=== PATIENT | female | born 1945 | race Caucasian/White ===

== ENCOUNTER 2018-06-09 10:08 | Emergency (ER) | payer OTHER, BC ==
[2018-06-09] MEDS ORDERED: Amoxicillin/Clavulanate K 875-125 MG Tab PO ONE (10:31)
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
== END 2018-06-09 10:55 | disposition home or self-care (01) ==
LOC: JD.ED 10:08
DX: S61.252A Open bite of right middle finger without damage to nail, initial encounter (principal); S66.322A Laceration of extensor muscle, fascia and tendon of right middle finger at wrist and hand level, initial encounter; W50.3XXA Accidental bite by another person, initial encounter
CPT/HCPCS: 99283; A9270

== ENCOUNTER 2020-02-21 07:32 | Inpatient (IN) | payer BC, MEDICARE ==
[2020-02-21] MEDS ORDERED: Ondansetron 4 MG/2 ML SDV IVPUSH ONE (07:54)
[2020-02-21] MEDS ORDERED: HYDROmorphone 0.5 MG/0.5 ML Syringe IVPUSH ONE (07:55)
--- NOTE | 2020-02-21 07:59 | EDM.PDOC ---
ED HPI GENERAL MEDICAL PROBLEM - General Chief Complaint: Abdominal Pain Stated Complaint: ABDOMINAL BLOATING Time Seen by Provider: 02/21/20 07:44 Source of Information: Reports: Patient, Family (daughter) History Limitations: Reports: No Limitations - History of Present Illness INITIAL COMMENTS - FREE TEXT/NARRATIVE: 74-year-old female presents to the ED in the accompaniment of her daughter. She indicates that she started having diffuse abdominal discomfort on , February 17. Began to appreciate increased abdominal discomfort and bloating. Bowel movements worked up until 2 days ago and were normal. No blood. No diarrhea. No fever or chills. Over the last 2 days she has been getting intermittent colicky type pain that is quite bad at times and mostly infraumbilical. Does not radiate into her back. This morning she vomited a small amount of bilious emesis. The last few days she has been living on fluids primarily water. She took in a fried egg yesterday morning that she believes stay down. No bowel movement for the last 48 hours. She believes she will still passing small amounts of flatus but not like normal. She feels like even the fluid she drank she did not void. I like it staying inside her abdomen. She has had no previous abdominal surgery. Onset: Gradual Onset Date: 02/18/20 Duration: Day(s):, Constant, Getting Worse (Increased feeling of bloatedness and ) Location: Reports: Abdomen Quality: Reports: Ache, Sharp, Stabbing Severity: Moderate Improves with: Reports: None Worsens with: Reports: Eating (Stenosis morning after drinking water) Context: Reports: Other. Denies: Activity, Exercise, Lifting, Sick Contact, Trauma Associated Symptoms: Reports: Loss of Appetite, Malaise, Nausea/Vomiting ( Emesis with a small amount of bilious material this morning). Denies: Confusion , Chest Pain, Cough (Spontaneous occurrence), cough w sputum, Diaphoresis, Fever /Chills, Headaches, Rash, Seizure, Shortness of Breath, Syncope, Weakness Treatments MEDICAID BILLER: Reports: Other (see below) (None.) Lower Abdomen Pain Score (Numeric/FACES): 2 - Related Data Allergies Allergy/AdvReac Type Severity Reaction Status Date / Time No Known Allergies Allergy Verified 02/21/20 07:47 Home Meds: Home Meds Levothyroxine Sodium [Synthroid] 0 mg PO DAILY 10/01/18 [History] Past Medical History - Past Health History Medical/Surgical History: Denies Medical/Surgical History Endocrine/Metabolic History: Reports: Hypothyroidism (On supplementation) Social & Family History - Tobacco Use Smoking Status *Q: Never Smoker - Caffeine Use Caffeine Use: Reports: None - Recreational Drug Use Recreational Drug Use: No - Living Situation & Occupation Living situation: Reports: Single Occupation: Retired ED ROS GENERAL - Review of Systems Review Of Systems: See Below Constitutional: Reports: Fatigue, Decreased Appetite, Other ([place] bloating. Vital signs show temperature 36.8. Heart rate is 93 and sinus respiratory to 16 with O2 sats of 96% on room air. BP is a bit elevated initially at 163 / 110. Currently down to 139/85). Denies: Fever, Chills, Malaise, Weakness, Night Sweats, Diaphoresis, Weight Loss (Not sleeping well last few nights), Weight Gain HEENT: Reports: Glasses Respiratory: Reports: No Symptoms Cardiovascular: Reports: No Symptoms Endocrine: Reports: No Symptoms GI/Abdominal: Reports: Abdominal Pain (See history of present illness.), Constipation (Bowel movement x2 days), Flatus (Still passing flatus) : Reports: No Symptoms Musculoskeletal: Reports: No Symptoms Skin: Reports: No Symptoms Neurological: Reports: No Symptoms Psychiatric: Reports: No Symptoms Hematologic/Lymphatic: Reports: No Symptoms Immunologic: Reports: No Symptoms ED EXAM, GI/ABD - Physical Exam Exam: See Below Exam Limited By: No Limitations General Appearance: Alert, WD/WN, No Apparent Distress, Other (Temperature is 36.8. Pulse 93 and sinus respiratory 16 O2 sats 96% on room air. BP is currently 138/85) Eyes: Bilateral: Normal Appearance (No scleral icterus or blepharal pallor.) Throat/Mouth: Normal Inspection, Normal Lips, Normal Oropharynx, Other Head: Atraumatic, Normocephalic (Is moist) Neck: Normal Inspection, Supple, Non-Tender, Full Range of Motion. No: Lymphadenopathy (L), Lymphadenopathy (R) Respiratory/Chest: No Respiratory Distress, Lungs Clear, Normal Breath Sounds, No Accessory Muscle Use, Chest Non-Tender Cardiovascular: Normal Peripheral Pulses, Regular Rate, Rhythm, No Edema, No Gallop, No Murmur, No Rub GI/Abdominal Exam: Soft, Non-Tender, No Organomegaly, No Mass, Pelvis Stable, Distended (Patient is distended and diffusely tympanitic to percussion. Some of the bowel sounds are fairly high-pitched.), Abnormal Bowel Sounds (Hyper active bowel sounds particularly across the upper abdomen), Other (No signs of peritonitis and no localization of pain.) Extremities: Normal Inspection, Normal Range of Motion, Non-Tender, No Pedal Edema Neurological: Alert, Oriented, CN II-XII Intact, Normal Cognition, Normal Gait Psychiatric: Normal Affect, Anxious (Mildly anxious.) Skin Exam: Warm, Dry, Intact, Normal Color, No Rash Course - Vital Signs Last Recorded V/S: Last Vital Signs Temp 36.8 C 02/21/20 13:38 Pulse 78 02/21/20 13:38 Resp 16 02/21/20 13:38 BP 104/80 02/21/20 13:38 Pulse Ox 98 02/21/20 13:38 - Orders/Labs/Meds Orders: Active Orders 24 hr Category Date Time Status Enema [RC] ASDIRECTED Care 02/21/20 11:40 Active Medication Orders Acetaminophen (Tylenol) 975 mg PO Q8H [facility] Last Admin: 02/21/20 14:15 Dose: 975 mg Docusate Sodium (Colace) 100 mg PO BID [facility] Last Admin: 02/21/20 14:15 Dose: 100 mg Lactated Ringer's (Ringers, Lactated) 1,000 mls @ 100 mls/hr IV ASDIRECTED [facility] Last Admin: 02/21/20 14:17 Dose: 100 mls/hr Levothyroxine Sodium (Levothyroxine) 25 mcg PO ACBREAKFAST [facility] Polyethylene Glycol (Miralax) 17 gm PO BID [facility] Last Admin: 02/21/20 14:17 Dose: 17 gm Labs: Laboratory Tests 02/21/20 02/21/20 02/21/20 Range/Units 08:05 08:05 08:05 WBC 7.89 (3.98-10.04) K/mm3 RBC 4.85 (3.98-5.22) M/mm3 Hgb 13.5 (11.2-15.7) gm/dl Hct 42.0 (34.1-44.9) % MCV 86.6 (79.4-94.8) fl MCH 27.8 (25.6-32.2) pg MCHC 32.1 L (32.2-35.5) g/dl RDW Std Deviation 45.3 (36.4-46.3) fL Plt Count 339 (182-369) K/mm3 MPV 10.0 (9.4-12.3) fl Neut % (Auto) 82.0 H (34.0-71.1) % Lymph % (Auto) 9.5 L (19.3-51.7) % Norton % (Auto) 8.2 (4.7-12.5) % Eos % (Auto) 0.1 L (0.7-5.8) Baso % (Auto) 0.1 (0.1-1.2) % Neut # (Auto) 6.46 H (1.56-6.13) K/mm3 Lymph # (Auto) 0.75 L (1.18-3.74) K/mm3 Norton # (Auto) 0.65 H (0.24-0.36) K/mm3 Eos # (Auto) 0.01 L (0.04-0.36) K/mm3 Baso # (Auto) 0.01 (0.01-0.08) K/mm3 Manual Slide Review Abnormal smear Sodium 139 (136-145) mEq/L Potassium 3.8 (3.5-5.1) mEq/L Chloride 100 (98-107) mEq/L Carbon Dioxide 25 (21-32) mEq/L Anion Gap 17.8 H (5-15) BUN 17 (7-18) mg/dL Creatinine 0.9 (0.55-1.02) mg/dL Est Cr Clr Drug Dosing 52.60 mL/min Estimated GFR (MDRD) > 60 (>60) mL/min BUN/Creatinine Ratio 18.9 H (14-18) Glucose 120 H (83-115) mg/dL Lactic Acid (0.4-2.0) mmol/L Calcium 9.6 (8.5-10.1) mg/dL Magnesium 2.1 (1.8-2.4) mg/dl Total Bilirubin 0.4 (0.2-1.0) mg/dL AST 30 (15-37) U/L ALT 22 (14-59) U/L Alkaline Phosphatase 73 (46-116) U/L C-Reactive Protein 0.3 (<1.0) mg/dL Total Protein 7.2 (6.4-8.2) g/dl Albumin 4.0 (3.4-5.0) g/dl Globulin 3.2 gm/dL Albumin/Globulin Ratio 1.3 (1-2) Lipase 47 L (73-393) U/L TSH 3rd Generation 4.507 H (0.358-3.74) uIU/mL Ketones 1.61 (0.0-0.3) mM /14/20 Range/Units 08:25 WBC (3.98-10.04) K/mm3 RBC (3.98-5.22) M/mm3 Hgb (11.2-15.7) gm/dl Hct (34.1-44.9) % MCV (79.4-94.8) fl MCH (25.6-32.2) pg MCHC (32.2-35.5) g/dl RDW Std Deviation (36.4-46.3) fL Plt Count (182-369) K/mm3 MPV (9.4-12.3) fl Neut % (Auto) (34.0-71.1) % Lymph % (Auto) (19.3-51.7) % Norton % (Auto) (4.7-12.5) % Eos % (Auto) (0.7-5.8) Baso % (Auto) (0.1-1.2) % Neut # (Auto) (1.56-6.13) K/mm3 Lymph # (Auto) (1.18-3.74) K/mm3 Norton # (Auto) (0.24-0.36) K/mm3 Eos # (Auto) (0.04-0.36) K/mm3 Baso # (Auto) (0.01-0.08) K/mm3 Manual Slide Review Sodium (136-145) mEq/L Potassium (3.5-5.1) mEq/L Chloride (98-107) mEq/L Carbon Dioxide (21-32) mEq/L Anion Gap (5-15) BUN (7-18) mg/dL Creatinine (0.55-1.02) mg/dL Est Cr Clr Drug Dosing mL/min Estimated GFR (MDRD) (>60) mL/min BUN/Creatinine Ratio (14-18) Glucose (83-115) mg/dL Lactic Acid 0.8 (0.4-2.0) mmol/L Calcium (8.5-10.1) mg/dL Magnesium (1.8-2.4) mg/dl Total Bilirubin (0.2-1.0) mg/dL AST (15-37) U/L ALT (14-59) U/L Alkaline Phosphatase (46-116) U/L C-Reactive Protein (<1.0) mg/dL Total Protein (6.4-8.2) g/dl Albumin (3.4-5.0) g/dl Globulin gm/dL Albumin/Globulin Ratio (1-2) Lipase (73-393) U/L TSH 3rd Generation (0.358-3.74) uIU/mL Ketones (0.0-0.3) mM Meds: Medications Generic Name Dose Route Start Last Admin Trade Name Freq PRN Reason Stop Dose Admin Acetaminophen 975 mg 02/21/20 12:00 02/21/20 14:15 Tylenol PO 975 mg Q8H GREGORY Administration Docusate Sodium 100 mg 02/21/20 12:00 02/21/20 14:15 Colace PO 100 mg BID GREGORY Administration Lactated Ringer's 1,000 mls @ 100 mls/hr 02/21/20 14:15 02/21/20 14:17 Ringers, Lactated IV 100 mls/hr ASDIRECTED GREGORY Administration Levothyroxine Sodium 25 mcg 02/22/20 06:00 Levothyroxine PO ACBREAKFAST GREGORY Polyethylene Glycol 17 gm 02/21/20 12:00 02/21/20 14:17 Miralax PO 17 gm BID GREGORY Administration Discontinued Medications Generic Name Dose Route Start Last Admin Trade Name Freq PRN Reason Stop Dose Admin Diatrizoate Meglum/Diatrizoate Sod 90 ml 02/21/20 10:20 02/21/20 10:36 Gastrografin 37% PO 02/21/20 10:21 90 ml ONETIME ONE Administration Hydromorphone HCl 0.5 mg 02/21/20 07:55 02/21/20 08:08 Dilaudid IVPUSH 02/21/20 07:56 0.5 mg ONETIME ONE Administration Dextrose/Sodium Chloride 1,000 mls @ 500 mls/hr 02/21/20 08:00 02/21/20 08:12 Dextrose 5%-Normal Saline IV 500 mls/hr ASDIRECTED GREGORY Administration Dextrose/Lactated Ringer's 1,000 mls @ 150 mls/hr 02/21/20 11:45 Dextrose 5%-Lactated Ringers IV ASDIRECTED GREGORY Iopamidol 100 ml 02/21/20 10:20 02/21/20 10:36 Isovue-300 (61%) IVPUSH 02/21/20 10:21 100 ml ONETIME ONE Administration Lactulose 20 gm 02/21/20 08:46 02/21/20 09:05 Cephulac PO 02/21/20 08:47 20 gm ONETIME ONE Administration Ondansetron HCl 4 mg 02/21/20 07:54 02/21/20 08:06 Zofran IVPUSH 02/21/20 07:55 4 mg ONETIME ONE Administration Sodium Chloride 10 ml 02/21/20 10:20 02/21/20 10:36 Saline Flush FLUSH 02/21/20 10:21 10 ml ONETIME ONE Administration - Radiology Interpretation Free Text/Narrative:: 74-year-old female presents to the ED for evaluation of gradually worsening abdominal discomfort over the last 3 to 4 days. She feels bloated distended and is still passing small quantities of flatus but no stool for 2 days. She had emesis x1 this morning. Has no appetite and has taken only fluids for the last 2 days. She did have a fried egg yesterday morning. No previous abdominal surgery. Exam reveals her to be distended with diffuse increased bowel sounds and tympany to percussion. Some of the bowel sounds are fairly high-pitched in the upper abdomen. Seen at the walk-in clinic on February 17 and diagnosed with partial small bowel obstruction. Instead of getting better it has not resolved. Plan D5 normal saline at 500 mils per hour. Given Dilaudid 0.5 mg IV with Zofran 4 mg IV for nausea and vomiting relief. Routine labs to be obtained including a serum lipase. CRP. Urinalysis when 1 becomes available. KUB to be done. Decision will be made whether to pursue CT of the abdomen after this. - Re-Assessments/Exams Free Text/Narrative Re-Assessment/Exam: 02/21/20 08:48 KUB reveals dilated loop of large bowel in the right upper quadrant of the abdomen. Appears to be a fair amount of stool throughout the descending colon and sparsity of gas in the rectal vault and lower abdomen. Where there is some fluid in the lower abdomen as well. No sign of air in the small bowel to suggest obstruction. There are no air-fluid levels in the distended loops of large bowel right upper quadrant. Plan will pursue CT of the abdomen with oral contrast with the addition of 20 g of lactulose with the contrast media to promote bowel emptying. Feeling comfortable at this point time with no nausea or abdominal pain after Zofran and Dilaudid 0.5. 02/21/20 09:30 White count is 7.89 with 82% neutrophils on the auto differential. Hemoglobin is 13.5 with hematocrit of 42.0. Platelet count is 339,000. Sodium 139 with a potassium of 3.8. Chloride is 100 with a bicarb of 25. Anion gap is 17.8. BUN is 17 with a creatinine of 0.9. GFR is greater than 60. Glucose 120 with a lactic acid of 0.8. Calcium 9.6 magnesium 2.1. Liver function normal. C-reactive protein 0.3. Total protein 7.2 lipase is 47 TSH is mildly elevated at 4.507. Gating she is subtherapeutic in terms of treatment. Serum ketones are elevated at 1.61. 02/21/20 11:23 CT of the abdomen and pelvis has been performed with IV and oral contrast. Mild amount amount of ascites is seen within the abdomen and pelvis. Dilated loops of fluids filled small bowel are appreciated. Fluid is also noted within the right side of the colon. Mild scattered stool is seen with in other portions of the colon. Small bowel dilatation occurs down to the terminal ileum with terminal ileum showing wall thickening. Appendix not visualized with certainty. Liver contains a small low-density finding within the left lobe which is too small to characterize by Hounsfield unit measurements. It measures about 6 mm in size. No additional abnormality is seen within the liver. Small amount of contrast is noted within the distal esophagus compatible with reflux. Spleen appears normal in size. Adrenal glands show no discrete nodules. Pancreas shows no abnormality kidneys show symmetric contrast enhancement without hydronephrosis or mass. The right kidney shows 2 small low-density findings which are nonspecific but most likely due to 2 small cysts. Gallbladder contains no calcified gallstones. Aorta shows no aneurysm. No discrete mesenteric abnormalities are appreciated no pelvic mass or adenopathy is seen. Delayed images show contrast within the distal ureters and within the bladder. Degenerative changes noted within the spine. Severe disc space narrowing is noted at the L4-L5 level with spondylolisthesis due to bilateral spondylitic defects , spondylolisthesis measures 1.1 cm. Severe disc space narrowing and vacuum phenomena seen at L5-S1 level as well. Impression is dilated small bowel loops down to the terminal ileum. Terminal ileum appears thickened. Findings suggest a nonspecific terminal ileitis as the etiology for the small bowel dilatation. 02/21/20 11: regarding go ahead and try a 1 enema with mineral oil to see if we can stimulate her bowel to she had the contrast material and the lactulose that I had given her. I have asked Dr. Crews on-call surgeon to see her in consultation as well. 02/21/20 12:03 Dr. Crews has visited with the patient and reviewed her CT and lab work. Decision made to admit her to the hospital per observation status as she cannot eat or drink at this point time. It is unclear as to the cause of her abdominal pain. There is concern for possible transition point in the mid transverse colon suggesting an obstruction process that is gradually worsening over the last 4 days. We are hopeful that the contrast and lactulose that I gave her orally may produce bowel function. Departure - Departure Time of Disposition: 13:20 Disposition: Refer to Observation Condition: Fair Clinical Impression: Abdominal pain Qualifiers: Abdominal location: generalized Qualified Code(s): R10.84 - Generalized abdominal pain Partial intestinal obstruction, unspecified as to cause Qualifiers: Intestinal obstruction type: unspecified Qualified Code(s): K56.600 - Partial intestinal obstruction, unspecified as to cause - Discharge Information *PRESCRIPTION DRUG MONITORING PROGRAM REVIEWED*: Not Applicable *COPY OF PRESCRIPTION DRUG MONITORING REPORT IN PATIENT LIZBETH: Not Applicable Sepsis Event Note (ED) - Evaluation Sepsis Screening Result: No Definite Risk - Focused Exam Vital Signs: Vital Signs Temp Pulse Resp BP Pulse Ox 02/21/20 07:42 36.8 C 93 16 163/110 H 96 - My Orders Last 24 Hours: My Active Orders 02/21/20 11:40 Enema [RC] ASDIRECTED - Assessment/Plan Last 24 Hours: My Active Orders 02/21/20 11:40 Enema [RC] ASDIRECTED
[2020-02-21] MEDS ORDERED: Dextrose 5%-0.9% NaCl 1,000 ML IV SCH (08:00)
[2020-02-21] MEDS ORDERED: Lactulose Soln 10 GM/15 ML 30 ML UD Cup PO ONE (08:46)
--- NOTE | 2020-02-21 09:56 | CR ---
Abdomen: Supine view of the abdomen was obtained. Comparison: No prior abdominal x-ray is available. Bowel gas pattern appears within normal limits. Degenerative change is noted within both hips, most severe on the right side. No abnormal calcifications or discrete soft tissue abnormality is seen. Impression: 1. Findings as described above. 2. Nothing acute is identified. Diagnostic code #2 Study was dictated in MDT
[2020-02-21] MEDS ORDERED: Sodium Chloride 0.9% 10 ML Syringe FLUSH ONE (10:20)
[2020-02-21] MEDS ORDERED: Iopamidol 612 MG/ML 100 ML Bottle IVPUSH ONE (10:20)
[2020-02-21] MEDS ORDERED: Diatrizoate Meglumine/Diatrizoate Sodium 37% 120 ML Bottle PO ONE (10:20)
--- NOTE | 2020-02-21 11:06 | CT ---
CT abdomen and pelvis Technique: Multiple axial sections were obtained from above the dome of the diaphragm inferiorly through the pubic symphysis. Intravenous and oral contrast was utilized. Findings: Mild amount of ascites is seen within the abdomen and pelvis. Dilated loops of fluid-filled small bowel are noted. Fluid is also noted within the right side of the colon. Mild scattered stool is seen within other portions of the colon. Small bowel dilatation occurs down to the terminal ileum with terminal ileum showing wall thickening. Appendix not visualized with certainty. Liver contains a small low density finding within the left lobe which is too small to characterize by Hounsfield unit measurements. This measures about 6 mm in size. No additional abnormality is seen within the liver. Small amount of contrast is noted within the distal esophagus compatible with reflux. Spleen appears normal in size. Adrenal glands show no discrete nodule. Pancreas shows no abnormality. Kidneys show symmetric contrast enhancement without hydronephrosis or mass. Right kidney shows 2 small low density findings which are nonspecific but most likely due to 2 small cysts. Gallbladder contains no calcified gallstones. Aorta shows no aneurysm. No discrete mesenteric abnormalities are seen. No pelvic mass or adenopathy is seen. Delayed images shows contrast within the distal ureters and within the bladder. Degenerative change is noted within the spine. Severe disc space narrowing is noted at L4-L5 with spondylolisthesis due to bilateral spondylolytic defects. Spondylolisthesis measures 1.1 cm. Severe disc space narrowing and vacuum phenomena is seen at L5-S1. Impression: 1. Dilated small bowel loops down to the terminal ileum. Terminal ileum appears thickened. Findings suggest a nonspecific terminal ileitis as the etiology for the small bowel dilatation. 2. Fluid within the right colon. Stool within other portions of the colon. 3. Other findings believed to be incidental as noted above. Diagnostic code #5 Study was dictated in MDT
[2020-02-21] MEDS ORDERED: Dextrose 5%-Lactated Ringers 1,000 ML IV SCH (11:45)
--- NOTE | 2020-02-21 12:07 | PCM.HP.2 ---
H&P History of Present Illness - General Date of Service: 02/21/20 Admit Problem/Dx: Admission Diagnosis/Problem Admission Diagnosis/Problem Small bowel obstruction Source of Information: Patient, Provider History Limitations: Reports: No Limitations - History of Present Illness Other HPI/Comments: Mrs. Hernandez is a 74 yo woman presenting with abdominal pain and bloating. She has noted intermittent abdominal cramping, pain and bloating for about a month now. Her symptoms worsened within the past 48 hours- she has had nausea, one small volume emesis, constipation and pain. She denies fever, chills. She has never had symptoms like this before. She has no history of abdominal operations. She is relatively healthy for her age, and only takes synthroid for hypothyroidism. She has never had a colonoscopy, and her mother was diagnosed with colon cancer when she was in her 80s. The patient reports perhaps a few pounds of weight loss recently, though she attributes this to loss of appetite. She denies any change in caliber, color, or consistency to her bowel movements. She last passed some flatus earlier today; last bowel movement was about three days ago. In the emergency room, her lab work is indicative only of mild dehydration, but her CT scan is abnormal, showing evidence of obstruction with transition point noted at the mid transverse colon, with dilated loops of distal small bowel and mild ascites. Clinically, she appears well with minimal abdominal tenderness. Lower Abdomen Pain Score (Numeric/FACES): 2 - Related Data Allergies/Adverse Reactions: Allergies Allergy/AdvReac Type Severity Reaction Status Date / Time No Known Allergies Allergy Verified 02/21/20 07:47 Home Medications: Home Meds Levothyroxine Sodium [Synthroid] 0 mg PO DAILY 06/09/18 [History] Past Medical History - Past Health History Medical/Surgical History: Denies Medical/Surgical History Endocrine/Metabolic History: Reports: Hypothyroidism (On supplementation) Social & Family History - Tobacco Use Smoking Status *Q: Never Smoker - Caffeine Use Caffeine Use: Reports: None - Recreational Drug Use Recreational Drug Use: No - Living Situation & Occupation Living situation: Reports: Single Occupation: Retired H&P Review of Systems - Review of Systems: Review Of Systems: See Below General: Reports: Decreased Appetite HEENT: Reports: No Symptoms Pulmonary: Reports: No Symptoms Cardiovascular: Reports: No Symptoms Gastrointestinal: Reports: Abdominal Pain, Anorexia, Constipation, Decreased Appetite, Distension, Flatus, Nausea, Vomiting Genitourinary: Reports: No Symptoms Musculoskeletal: Reports: No Symptoms Skin: Reports: No Symptoms Psychiatric: Reports: No Symptoms Neurological: Reports: No Symptoms Hematologic/Lymphatic: Reports: No Symptoms Immunologic: Reports: No Symptoms Exam - Exam Exam: See Below - Vital Signs Vital Signs: Last Vital Signs Temp 36.8 C 02/21/20 07:42 Pulse 93 02/21/20 07:42 Resp 16 02/21/20 07:42 BP 163/110 H 02/21/20 07:42 Pulse Ox 96 02/21/20 07:42 Weight: 58.967 kg - Exam General: Alert, Oriented, Cooperative HEENT: Conjunctiva Clear Neck: Trachea Midline Lungs: Normal Respiratory Effort Cardiovascular: Regular Rate, Regular Rhythm GI/Abdominal Exam: Other (distended. no hernia. minimally tender. No palpable mass. Dull to percussion. ) (Female) Exam: Deferred Rectal (Female) Exam: Deferred Extremities: No Pedal Edema Skin: Warm, Dry, Other (decreased skin turgor) Neuro Extensive - Mental Status: Alert, Oriented x3 Psychiatric: Normal Mood - Patient Data Lab Results Last 24 hrs: Laboratory Results - last 24 hr 02/21/20 02/21/20 02/21/20 Range/Units 08:05 08:05 08:05 WBC 7.89 (3.98-10.04) K/mm3 RBC 4.85 (3.98-5.22) M/mm3 Hgb 13.5 (11.2-15.7) gm/dl Hct 42.0 (34.1-44.9) % MCV 86.6 (79.4-94.8) fl MCH 27.8 (25.6-32.2) pg MCHC 32.1 L (32.2-35.5) g/dl RDW Std Deviation 45.3 (36.4-46.3) fL Plt Count 339 (182-369) K/mm3 MPV 10.0 (9.4-12.3) fl Neut % (Auto) 82.0 H (34.0-71.1) % Lymph % (Auto) 9.5 L (19.3-51.7) % Todd % (Auto) 8.2 (4.7-12.5) % Eos % (Auto) 0.1 L (0.7-5.8) Baso % (Auto) 0.1 (0.1-1.2) % Neut # (Auto) 6.46 H (1.56-6.13) K/mm3 Lymph # (Auto) 0.75 L (1.18-3.74) K/mm3 Todd # (Auto) 0.65 H (0.24-0.36) K/mm3 Eos # (Auto) 0.01 L (0.04-0.36) K/mm3 Baso # (Auto) 0.01 (0.01-0.08) K/mm3 Manual Slide Review Abnormal smear Sodium 139 (136-145) mEq/L Potassium 3.8 (3.5-5.1) mEq/L Chloride 100 (98-107) mEq/L Carbon Dioxide 25 (21-32) mEq/L Anion Gap 17.8 H (5-15) BUN 17 (7-18) mg/dL Creatinine 0.9 (0.55-1.02) mg/dL Est Cr Clr Drug Dosing 52.60 mL/min Estimated GFR (MDRD) > 60 (>60) mL/min BUN/Creatinine Ratio 18.9 H (14-18) Glucose 120 H (83-115) mg/dL Lactic Acid (0.4-2.0) mmol/L Calcium 9.6 (8.5-10.1) mg/dL Magnesium 2.1 (1.8-2.4) mg/dl Total Bilirubin 0.4 (0.2-1.0) mg/dL AST 30 (15-37) U/L ALT 22 (14-59) U/L Alkaline Phosphatase 73 (46-116) U/L C-Reactive Protein 0.3 (<1.0) mg/dL Total Protein 7.2 (6.4-8.2) g/dl Albumin 4.0 (3.4-5.0) g/dl Globulin 3.2 gm/dL Albumin/Globulin Ratio 1.3 (1-2) Lipase 47 L (73-393) U/L TSH 3rd Generation 4.507 H (0.358-3.74) uIU/mL Ketones 1.61 (0.0-0.3) mM 02/21/20 Range/Units 08:25 WBC (3.98-10.04) K/mm3 RBC (3.98-5.22) M/mm3 Hgb (11.2-15.7) gm/dl Hct (34.1-44.9) % MCV (79.4-94.8) fl MCH (25.6-32.2) pg MCHC (32.2-35.5) g/dl RDW Std Deviation (36.4-46.3) fL Plt Count (182-369) K/mm3 MPV (9.4-12.3) fl Neut % (Auto) (34.0-71.1) % Lymph % (Auto) (19.3-51.7) % Todd % (Auto) (4.7-12.5) % Eos % (Auto) (0.7-5.8) Baso % (Auto) (0.1-1.2) % Neut # (Auto) (1.56-6.13) K/mm3 Lymph # (Auto) (1.18-3.74) K/mm3 Todd # (Auto) (0.24-0.36) K/mm3 Eos # (Auto) (0.04-0.36) K/mm3 Baso # (Auto) (0.01-0.08) K/mm3 Manual Slide Review Sodium (136-145) mEq/L Potassium (3.5-5.1) mEq/L Chloride (98-107) mEq/L Carbon Dioxide (21-32) mEq/L Anion Gap (5-15) BUN (7-18) mg/dL Creatinine (0.55-1.02) mg/dL Est Cr Clr Drug Dosing mL/min Estimated GFR (MDRD) (>60) mL/min BUN/Creatinine Ratio (14-18) Glucose (83-115) mg/dL Lactic Acid 0.8 (0.4-2.0) mmol/L Calcium (8.5-10.1) mg/dL Magnesium (1.8-2.4) mg/dl Total Bilirubin (0.2-1.0) mg/dL AST (15-37) U/L ALT (14-59) U/L Alkaline Phosphatase (46-116) U/L C-Reactive Protein (<1.0) mg/dL Total Protein (6.4-8.2) g/dl Albumin (3.4-5.0) g/dl Globulin gm/dL Albumin/Globulin Ratio (1-2) Lipase (73-393) U/L TSH 3rd Generation (0.358-3.74) uIU/mL Ketones (0.0-0.3) mM Result Diagrams: 02/21/20 08:05 02/21/20 08:05 Sepsis Event Note - Evaluation Sepsis Screening Result: No Definite Risk - Focused Exam Vital Signs: Vital Signs Temp Pulse Resp BP Pulse Ox 02/21/20 07:42 36.8 C 93 16 163/110 H 96 Date Exam was Performed: 02/21/20 Time Exam was Performed: 12:01 *Q Meaningful Use (ADM) - VTE Risk Assess *Q Each Risk Factor Represents 2 Points: Age 60 - 74 Years Total Score 2 Point Risk Factors: 2 Problem List Initiated/Reviewed/Updated: Yes Orders Last 24hrs: Active Orders 24 hr Category Date Time Status Patient Status [ADT] Routine ADT 02/21/20 11:57 Ordered Activity as Tolerated [RC] .Routine Care 02/21/20 11:57 Ordered Antiembolic Devices [RC] PER UNIT ROUTINE Care 02/21/20 11:58 Ordered Enema [RC] ASDIRECTED Care 02/21/20 11:40 Active Oxygen Therapy [RC] PRN Care 02/21/20 11:57 Ordered Vital Signs [RC] Q8H Care 02/21/20 11:57 Ordered Regular Diet [DIET] Diet 02/21/20 Breakfast Ordered BASIC METABOLIC PANEL,BMP [CHEM] AM Lab 02/22/20 05:11 Ordered CBC WITH AUTO DIFF [HEME] AM Lab 02/22/20 05:11 Ordered URINALYSIS W/MICROSCOPIC [UA W/MICROSCOPIC] [URIN] Stat Lab 02/21/20 07:56 Ordered Acetaminophen [Tylenol] Med 02/21/20 12:00 Ordered 975 mg PO Q8H Dextrose 5%-0.9% NaCl [Dextrose 5%-Normal Saline] 1,000 Med 02/21/20 08:00 Active ml IV ASDIRECTED Dextrose 5%-Lactated Ringers 1,000 ml Med 02/21/20 11:45 Active IV ASDIRECTED Docusate Sodium [Colace] Med 02/21/20 12:00 Ordered 100 mg PO BID Levothyroxine Med 02/22/20 09:00 Ordered 25 mcg PO DAILY polyethylene glycoL 3350 [MiraLAX] Med 02/21/20 12:00 Ordered 17 gm PO BID Sequential Compression Device [OM.PC] Routine Oth 02/21/20 11:57 Ordered Resuscitation Status Routine Resus Stat 02/21/20 11:57 Ordered Medication Orders Dextrose/Sodium Chloride (Dextrose 5%-Normal Saline) 1,000 mls @ 500 mls/hr IV ASDIRECTED [facility] Last Admin: 02/21/20 08:12 Dose: 500 mls/hr Dextrose/Lactated Ringer's (Dextrose 5%-Lactated Ringers) 1,000 mls @ 150 mls/ hr IV ASDIRECTED [facility] Assessment/Plan Comment:: Partial large bowel obstruction, no with fairly minimal symptoms. Plan to admit for observation, IV fluid resuscitation, bowel regimen. Anticipate discharge to home if doing better tomorrow. Patient will need urgent colonoscopy which can be done in outpatient setting based on current clinical picture.
[2020-02-21] MEDS: Docusate Sodium 100 MG Cap PO SCH ×3 (14:15→23:51)
[2020-02-21] MEDS: Acetaminophen 325 MG Tab PO SCH ×2 (14:15→19:44)
[2020-02-21] MEDS: Polyethylene Glycol 3350 Powder 17 GM Packet PO SCH ×3 (14:17→23:49)
[2020-02-21] MEDS: Lactated Ringers 1,000 ML IV SCH ×2 (14:17→23:09)
[2020-02-21] MEDS: Ondansetron 4 MG/2 ML SDV IVPUSH PRN (23:36)
[2020-02-22] MEDS: Acetaminophen 325 MG Tab PO SCH ×3 (04:54→20:07)
[2020-02-22] MEDS: Levothyroxine 25 MCG Tab PO SCH ×2 (04:54→05:06)
[2020-02-22] MEDS ORDERED: Levothyroxine 112 MCG Tab PO SCH ×2 (06:00→07:00)
[2020-02-22] MEDS: Polyethylene Glycol 3350 Powder 17 GM Packet PO SCH (08:00)
[2020-02-22] MEDS: Docusate Sodium 100 MG Cap PO SCH (08:00)
[2020-02-22] MEDS: Lactated Ringers 1,000 ML IV SCH ×2 (10:10→20:14)
[2020-02-22] MEDS: Ondansetron 4 MG/2 ML SDV IVPUSH PRN (12:32)
[2020-02-22] MEDS ORDERED: Benzocaine 20% Oral Spray 59.2 ML Canister MUCMEM PRN (17:49)
--- NOTE | 2020-02-22 18:25 | CR ---
Chest: PA view of the chest was obtained. Comparison: No prior chest imaging is available. Heart size and mediastinum are within normal limits. Increased density within left lung base is seen. Difficult to exclude small left-sided pleural effusion. Nasogastric tube is seen with tip lying within the stomach. Mildly dilated loops of bowel are seen within the abdomen. No free air is seen. Impression: 1. Findings are compatible with partially visualized small bowel obstruction. 2. Increased density within the left lung base most likely due to atelectasis. Possible small left-sided pleural effusion. 3. Tip of nasogastric tube within the stomach. Diagnostic code #3 This report was dictated in MDT
[2020-02-22] MEDS ORDERED: Acetaminophen 325 MG/10.15 ML ML PO PRN (20:04)
[2020-02-22] MEDS ORDERED: Ketorolac 15 MG/ML SDV IVPUSH PRN (20:06)
[2020-02-23] MEDS: Levothyroxine 25 MCG Tab PO SCH (05:26)
[2020-02-23] MEDS: Levothyroxine 112 MCG Tab PO SCH (05:26)
[2020-02-23] MEDS: Lactated Ringers 1,000 ML IV SCH ×2 (05:27→18:21)
[2020-02-23] MEDS ORDERED: Acetaminophen 325 MG Tab PO PRN (06:24)
[2020-02-23] MEDS ORDERED: Diatrizoate Meglumine/Diatrizoate Sodium 37% 120 ML Bottle ONE (08:13)
[2020-02-23] MEDS ORDERED: DIATRIZOATE MEGLUMINE ONE (09:00)
--- NOTE | 2020-02-23 09:41 | CR ---
Barium enema: Water-soluble contrast was utilized. Colon was outlined to the hepatic flexure. Department had no further contrast and study was terminated at this point. No areas of obstruction or narrowing are seen within the left or transverse colon. Increased stool is noted on preliminary film in the area of the right colon. Nasogastric tube is seen. Impression: 1. Increased stool within the right colon. 2. Colon was outlined to this area of stool at the hepatic flexure. No further contrast was available to attempt to outline the right colon around this stool. 3. No findings of colonic stricture are seen within the left or transverse colon. Diagnostic code #3 This report was dictated in MDT
--- NOTE | 2020-02-23 10:22 | PCM.PREANE ---
Preanesthetic Assessment - Procedure Proposed Procedure: Diagnostic Laparotomy with possible bowel resection - Anesthesia/Transfusion/Family Hx Anesthesia History: No Prior Anesthesia Transfusion History: No Prior Transfusion(s) - Review of Systems General: No Symptoms Pulmonary: No Symptoms Cardiovascular: No Symptoms Gastrointestinal: No Symptoms Neurological: No Symptoms Other: Reports: None - Physical Assessment NPO Status Date: 02/23/20 NPO Status Time: 04:00 Vital Signs: Last Vital Signs Temp 98.1 F 02/23/20 07:38 Pulse 72 02/23/20 07:38 Resp 20 02/23/20 07:38 BP 121/73 02/23/20 07:38 Pulse Ox 97 02/23/20 07:38 Height: 1.7 m Weight: 65.045 kg ASA Class: 2 Mental Status: Alert & Oriented x3 Airway Class: Mallampati = 3 Dentition: Reports: Normal Dentition (age appropriate) Thyro-Mental Finger Breadths: 3 Mouth Opening Finger Breadths: 3 ROM/Head Extension: Limited/Partial Lungs: Clear to Auscultation Cardiovascular: Regular Rate, Regular Rhythm - Lab Values: Laboratory Last Values WBC 6.76 K/mm3 (3.98-10.04) 02/22/20 04:45 RBC 4.32 M/mm3 (3.98-5.22) 02/22/20 04:45 Hgb 12.0 gm/dl (11.2-15.7) D 02/22/20 04:45 Hct 38.2 % (34.1-44.9) 02/22/20 04:45 MCV 88.4 fl (79.4-94.8) 02/22/20 04:45 MCH 27.8 pg (25.6-32.2) 02/22/20 04:45 MCHC 31.4 g/dl (32.2-35.5) L 02/22/20 04:45 RDW Std Deviation 45.6 fL (36.4-46.3) 02/22/20 04:45 Plt Count 309 K/mm3 (182-369) 02/22/20 04:45 MPV 10.2 fl (9.4-12.3) 02/22/20 04:45 Neut % (Auto) 74.2 % (34.0-71.1) H 02/22/20 04:45 Lymph % (Auto) 16.3 % (19.3-51.7) L 02/22/20 04:45 Milam % (Auto) 8.9 % (4.7-12.5) 02/22/20 04:45 Eos % (Auto) 0.4 (0.7-5.8) L 02/22/20 04:45 Baso % (Auto) 0.1 % (0.1-1.2) 02/22/20 04:45 Neut # (Auto) 5.01 K/mm3 (1.56-6.13) 02/22/20 04:45 Lymph # (Auto) 1.10 K/mm3 (1.18-3.74) L 02/22/20 04:45 Milam # (Auto) 0.60 K/mm3 (0.24-0.36) H 02/22/20 04:45 Eos # (Auto) 0.03 K/mm3 (0.04-0.36) L 02/22/20 04:45 Baso # (Auto) 0.01 K/mm3 (0.01-0.08) 02/22/20 04:45 Manual Slide Review Abnormal smear 02/21/20 08:05 Sodium 139 mEq/L (136-145) 02/22/20 04:45 Potassium 3.4 mEq/L (3.5-5.1) L 02/22/20 04:45 Chloride 103 mEq/L (98-107) 02/22/20 04:45 Carbon Dioxide 26 mEq/L (21-32) 02/22/20 04:45 Anion Gap 13.4 (5-15) 02/22/20 04:45 BUN 11 mg/dL (7-18) 02/22/20 04:45 Creatinine 0.7 mg/dL (0.55-1.02) 02/22/20 04:45 Est Cr Clr Drug Dosing 70.64 mL/min 02/22/20 04:45 Estimated GFR (MDRD) > 60 mL/min (>60) 02/22/20 04:45 BUN/Creatinine Ratio 15.7 (14-18) 02/22/20 04:45 Glucose 113 mg/dL (83-115) 02/22/20 04:45 Lactic Acid 0.8 mmol/L (0.4-2.0) 02/21/20 08:25 Calcium 8.6 mg/dL (8.5-10.1) 02/22/20 04:45 Magnesium 2.1 mg/dl (1.8-2.4) 02/21/20 08:05 Total Bilirubin 0.4 mg/dL (0.2-1.0) 02/21/20 08:05 AST 30 U/L (15-37) 02/21/20 08:05 ALT 22 U/L (14-59) 02/21/20 08:05 Alkaline Phosphatase 73 U/L (46-116) 02/21/20 08:05 C-Reactive Protein 0.3 mg/dL (<1.0) 02/21/20 08:05 Total Protein 7.2 g/dl (6.4-8.2) 02/21/20 08:05 Albumin 4.0 g/dl (3.4-5.0) 02/21/20 08:05 Globulin 3.2 gm/dL 02/21/20 08:05 Albumin/Globulin Ratio 1.3 (1-2) 02/21/20 08:05 Lipase 47 U/L (73-393) L 02/21/20 08:05 TSH 3rd Generation 4.507 uIU/mL (0.358-3.74) H 02/21/20 08:05 Urine Color Yellow (Yellow) 02/21/20 13:14 Urine Appearance Slt cloudy (Clear) H 02/21/20 13:14 Urine pH 5.5 (5.0-8.0) 02/21/20 13:14 Ur Specific Wesley 1.015 (1.005-1.030) 02/21/20 13:14 Urine Protein Negative (Negative) 02/21/20 13:14 Urine Glucose (UA) Negative (Negative) 02/21/20 13:14 Urine Ketones 1+ (Negative) H 02/21/20 13:14 Urine Occult Blood Trace-lysed (Negative) H 02/21/20 13:14 Urine Nitrite Negative (Negative) 02/21/20 13:14 Urine Bilirubin 1+ (Negative) H 02/21/20 13:14 Urine Urobilinogen 2.0 (0.2-1.0) H 02/21/20 13:14 Ur Leukocyte Esterase Negative (Negative) 02/21/20 13:14 Urine RBC 0-5 /hpf (0-5) 02/21/20 13:14 Urine WBC Not seen /hpf (0-5) 02/21/20 13:14 Ur Squamous Epith Cells Not seen /hpf (0-5) 02/21/20 13:14 Urine Bacteria Not seen /hpf (FEW) 02/21/20 13:14 Urine Mucus Not seen /hpf (FEW) 02/21/20 13:14 Ketones 1.61 mM (0.0-0.3) 02/21/20 08:05 - Allergies Allergies/Adverse Reactions: Allergies Allergy/AdvReac Type Severity Reaction Status Date / Time No Known Allergies Allergy Verified 02/21/20 07:47 - Acknowledgements Anesthesia Type Planned: General Anesthesia, Epidural (for postoperative pain control), MAC Pt an Appropriate Candidate for the Planned Anesthesia: Yes Alternatives and Risks of Anesthesia Discussed w Pt/Guardian: Yes Pt/Guardian Understands and Agrees with Anesthesia Plan: Yes PreAnesthesia Questionnaire - Past Health History Medical/Surgical History: Denies Medical/Surgical History Endocrine/Metabolic History: Reports: Hypothyroidism (On supplementation) - SUBSTANCE USE Smoking Status *Q: Never Smoker Recreational Drug Use History: No - HOME MEDS Home Medications: Home Meds Levothyroxine Sodium [Synthroid] 137 mcg PO DAILY 06/09/18 [History] - CURRENT (IN HOUSE) MEDS Current Meds: Current Medications Acetaminophen (Tylenol) 975 mg PO Q8H PRN PRN Reason: Pain Benzocaine (Hurricaine 20% [place]) 0 ml MUCMEM Q4HR PRN PRN Reason: Sore Throat Lactated Ringer's (Ringers, Lactated) 1,000 mls @ 100 mls/hr IV ASDIRECTED [facility] Last Admin: 02/23/20 05:27 Dose: 100 mls/hr Ketorolac Tromethamine (Toradol) 15 mg IVPUSH Q6H PRN PRN Reason: Pain Last Admin: 02/23/20 00:17 Dose: 15 mg Levothyroxine Sodium (Levothyroxine) 25 mcg PO ACBREAKFAST [facility] Last Admin: 02/23/20 05:26 Dose: 25 mcg Levothyroxine Sodium (Levothyroxine) 112 mcg PO ACBREAKFAST [facility] Last Admin: 02/23/20 05:26 Dose: 112 mcg Ondansetron HCl (Zofran) 4 mg IVPUSH Q6H PRN PRN Reason: Nausea/Vomiting Last Admin: 02/22/20 12:32 Dose: 4 mg Discontinued Medications Acetaminophen (Tylenol) 975 mg PO Q8H [facility] Last Admin: 02/22/20 20:07 Dose: Not Given Acetaminophen (Tylenol) 975 mg PO Q8H PRN PRN Reason: Pain Last Admin: 02/23/20 05:27 Dose: 975 mg Diatrizoate Meglum/Diatrizoate Sod (Gastrografin 37%) 90 ml PO ONETIME ONE Stop: 02/21/20 10:21 Last Admin: 02/21/20 10:36 Dose: 90 ml Diatrizoate Meglum/Diatrizoate Sod (Gastrografin 37%) 360 ml .XX ONETIME ONE Stop: 02/23/20 08:14 Last Admin: 02/23/20 09:26 Dose: 1,000 ml Diatrizoate Meglumine (Cystografin) 300 ml .XX ONETIME ONE Stop: 02/23/20 09:01 Last Admin: 02/23/20 09:29 Dose: 300 ml Docusate Sodium (Colace) 100 mg PO BID [facility] Last Admin: 02/22/20 08:00 Dose: 100 mg Hydromorphone HCl (Dilaudid) 0.5 mg IVPUSH ONETIME ONE Stop: 02/21/20 07:56 Last Admin: 02/21/20 08:08 Dose: 0.5 mg Dextrose/Sodium Chloride (Dextrose 5%-Normal Saline) 1,000 mls @ 500 mls/hr IV ASDIRECTED [facility] Last Admin: 02/21/20 08:12 Dose: 500 mls/hr Dextrose/Lactated Ringer's (Dextrose 5%-Lactated Ringers) 1,000 mls @ 150 mls/ hr IV ASDIRECTED [facility] Iopamidol (Isovue-300 (61%)) 100 ml IVPUSH ONETIME ONE Stop: 02/21/20 10:21 Last Admin: 02/21/20 10:36 Dose: 100 ml Lactulose (Cephulac) 20 gm PO ONETIME ONE Stop: 02/21/20 08:47 Last Admin: 02/21/20 09:05 Dose: 20 gm Levothyroxine Sodium (Levothyroxine) 25 mcg PO ACBREAKFAST [facility] Last Admin: 02/22/20 05:06 Dose: Not Given Levothyroxine Sodium (Levothyroxine) 112 mcg PO DAILY@0700 [facility] Last Admin: 02/22/20 11:02 Dose: Not Given Levothyroxine Sodium (Levothyroxine) 112 mcg PO ACBREAKFAST [facility] Last Admin: 02/22/20 11:01 Dose: Not Given Ondansetron HCl (Zofran) 4 mg IVPUSH ONETIME ONE Stop: 02/21/20 07:55 Last Admin: 02/21/20 08:06 Dose: 4 mg Polyethylene Glycol (Miralax) 17 gm PO BID [facility] Last Admin: 02/22/20 08:00 Dose: 17 gm Sodium Chloride (Saline Flush) 10 ml FLUSH ONETIME ONE Stop: 02/21/20 10:21 Last Admin: 02/21/20 10:36 Dose: 10 ml
[2020-02-23] MEDS ORDERED: Propofol 200 MG/20 ML SDV ONE ×3 (10:43→14:09)
[2020-02-23] MEDS ORDERED: fentaNYL 100 MCG/2 ML SDV ONE ×2 (10:43→13:29)
[2020-02-23] MEDS ORDERED: Midazolam 1 MG/ML 2 ML SDV ONE (10:43)
[2020-02-23] MEDS ORDERED: Lidocaine 2% with EPINEPHrine 1:200,000 20 ML SDV ONE (10:44)
[2020-02-23] MEDS ORDERED: Lactated Ringers 1,000 ML ONE ×2 (12:50)
[2020-02-23] MEDS: Bupivacaine 0.5%/EPINEPHrine 1:200,000 50 ML MDV ONE ×2 (13:02→13:19)
[2020-02-23] MEDS ORDERED: Bupivacaine 0.25% 10 ML SDV ONE ×2 (13:22→14:49)
[2020-02-23] MEDS ORDERED: metroNIDAZOLE/Normal Saline 100 ML ONE (13:27)
[2020-02-23] MEDS ORDERED: EPINEPHrine 1 MG/ML SDV ONE (14:14)
--- NOTE | 2020-02-23 14:19 | PCM.PRNOTE ---
- Free Text/Narrative Note: Thoracic epidural placement for intraoperative and postoperative pain management Surgery: Laparotomy with partial colectomy Requesting surgeon: Dr. Cory Crews Patient has been interviewed, risk/benefits/alternatives discussed, questions answered. Vital signs and labs reviewed. Consent signed. IVF bolus given. Patient is sitting on the bed in preoperative area, positioning using pillow . Time out performed at 11:58. Mask, head cover, sterile gloves on. Betadine preparation x3 and sterile drape. Local infiltration with 1% Lidocaine at T10 - T11 interspace. First attempt with 17G Tuohy needle midline. Unable to advance due patient's inability to curve the back. Second attempt at the same interspace, paramedian approach. Loss of Resistance at 5 cm. No fluid obtained, no blood obtained. No paresthesia encountered. Easy threading in of 19G catheter. Secured at 13 cm at the skin. Test dose given 1.5% Lidocaine with 1:200K epinephrine, negative for intravascular/ negative for intrathecal placement. Vital signs stable. 10 mls of 2 % PF Lidocaine with 1:200K epinephrine given in incremental boluses. Catheter dressing applied and filter attached. Level assessed at 12:30 approximately T6. Fentanyl 100 mcg and then Start of procedure: 11:58 End of procedure: 12:30
[2020-02-23] MEDS ORDERED: diphenhydrAMINE 50 MG/ML SDV IVPUSH PRN (14:26)
[2020-02-23] MEDS ORDERED: fentaNYL 100 MCG/2 ML SDV EPIDUR PRN (14:26)
[2020-02-23] MEDS ORDERED: ePHEDrine 50 MG/ML SDV IVPUSH PRN (14:26)
[2020-02-23] MEDS: Bupivacaine/fentaNYL/NS 100 ML Bag EPIDUR PRN (15:45)
--- NOTE | 2020-02-23 16:13 | PCM.PRNOTE ---
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 No evident carcinomatosis or hepatic metastases were noted. Surgeon: Cory Crews MD Assisting: Yumiko SR Pre-op antibiotic: 2 g cefoxitin IV. A dose of 500 mg flagyl was given intraop EBL: 100 cc Specimen: terminal ileum, right colon, with addition of resected initial anastomosis Detailed Report: The patient was taken to the operating room after placement of an epidural catheter for anesthesia in the preoperative area. The patient was placed supine on the operating table, and sedation administered. A Alfredo catheter was placed, and the abdomen was prepped and draped in usual sterile fashion. A midline laparotomy incision was made extending from the epigastrium to approximately 5 cm inferior to the umbilicus. Dissection was carried down through subcutaneous tissue until midline fascia was identified. The abdomen was entered sharply and safely, and immediately several liters of clear ascites was encountered. Fluid was suctioned, and the incision through the fascia extended for optimal exposure. The small bowel appeared dilated and edematous, but appeared well perfused. The cecum and a sending colon were dilated and tense, with a transition point at the proximal transverse colon. A hard mass was palpable at the transition site. First, a window was made in the mesentery at the ileum approximately 20 cm proximal to the ileocecal valve. A 55 mm AUSTYN linear stapler with blue load was used to divide the bowel at this point. The LigaSure was used to divide the mesentery working towards the ileocecal junction. The ileum leading up to the colon as well as the ascending colon itself were tense and distended with fluid contents. A decompressive enterotomy was made in the terminal ileum, with spillage of pressurized luminal contents. This fluid was suctioned out of the bowel, and the abdomen was washed out thoroughly and suctioned. Next, the ascending colon was reflected medially, and lateral attachments were dissected. Care was taken to preserve the retroperitoneal structures, and the duodenum was identified and protected during dissection. With adequate mobilization towards the midline, the mesentery was divided close to the base of the ileocolic pedicle. A point of division was identified approximately 5 cm distal to the palpable lesion. This area was cleaned, and the linear stapler was used to divide the bowel at this point. This point, the specimen was totally freed, and passed off the table. Several liters of warm sterile saline were used to irrigate the abdomen. There was good mobilization of the remaining transverse colon, which appeared to have good continued blood supply. This met up easily side to side with the neoterminal ileum. The antimesenteric borders were aligned, and enterotomies were made to permit passage of the linear AUSTYN stapler. A [id number] staple anastomosis was created with a 55 mm blue load. The remaining enterotomy we attempted to close using a TA 30 stapler, which malfunctioned during firing. This resulted in a much more sizable remaining enterotomy. Rather than attempting to repair and close this giant enterotomy, the anastomosis was resected, providing an additional distal 5 cm for a colon specimen, and the ileum and colon were aligned for [id number] anastomosis again. This time the anastomosis was created without any problem, using a different TA-60 blue load stapler. The bowel appeared to have good blood supply, and there was no tension on the anastomosis. Additional stitches were placed at the crotch of the staple line for reinforcement. The transverse staple line had some minor bleeding, and this was controlled by placing several imbricating sutures over the staple line. The anastomosis was reduced into the abdomen, and draped with remaining omentum. The small bowel was reduced into the abdomen, and fascia was closed with running 0 PDS suture. The subcutaneous wound was irrigated prior to closing the skin with juan jose. The specimen was then opened on the back table, and a rockhard nearly obstructing lesion presumed to be cancer was seen. Cory Crews MD General Surgery
[2020-02-23] MEDS: Heparin Sodium 5,000 Units/ML Vial SUBCUT SCH (16:28)
--- NOTE | 2020-02-23 17:15 | CR ---
Chest: AP view of the chest was obtained. Comparison: Prior chest x-ray of 02/22/20. Heart size and mediastinum are normal. Nasogastric tube is seen with tip lying slightly above the gastroesophageal junction. Left sided line is noted. Please correlate as to type of this line. This line appears to be coiled below the hemidiaphragm. Small pleural effusion is seen on the left side as well as parenchymal density either due to atelectasis or possibly small area pneumonia. Chronic rotator cuff tear are noted within the right shoulder. Impression: 1. Tubes and catheters as described above. 2. Small left-sided pleural effusion with parenchymal density within the left lung base either due to atelectasis or small area of pneumonia. Diagnostic code #3 This report was dictated in MDT
--- NOTE | 2020-02-23 17:16 | PCM.SN.2 ---
- Free Text/Narrative Note: Hospital Day 3 with bowel obstruction S: some relief with NG tube decompression, but still distended and uncomfortable. Reports no flatus. O: AF-VSS NG output > 1 L in 24 hrs adequate urine output recorded Distended, dull to percussion, minimally tender A: Chronic progressive bowel obstruction, with concern for colon cancer. P: Gastrografin enema done this morning does not show contrast beyond the hepatic flexure. Plan for exploratory laparotomy and likely bowel resection.
--- NOTE | 2020-02-23 17:20 | PCM.SN.2 ---
- Free Text/Narrative Note: Hospital day 2 bowel obstruction S: vomited large volume overnight. Not feeling well, no appetite today. O: AF-VSS distended abdomen, minimally tender, dull to percussion, no palpable mass Not in distress A: Partial bowel obstruction of unclear etiology. Concern for transition point in mid colon on CT scan, and read of thickened wall of the terminal ileum raises the question of inflammatory bowel disease. The patient, however, has no significant pain and lab work is fairly unremarkable. Symptoms have been brewing for sometime, getting progressively worse. In a 74 yo woman with no prior colonoscopy and family history of colon cancer, I suspect an obstructing malignant tumor in the colon. P: NG tube decompression. Reassess in AM for possible laparotomy vs additional diagnostic testing.
--- NOTE | 2020-02-23 17:42 | PCM.POSTAN ---
POST ANESTHESIA ASSESSMENT - MENTAL STATUS Mental Status: Alert, Oriented - VITAL SIGNS Vital Signs: Vital signs at ICU care transfer at 15:30: BP: 103/59, HR:73, RR:22, SpO2: 93 on 4L O2, T:97F Last Vital Signs Temp 97.1 F 02/23/20 16:00 Pulse 81 02/23/20 16:46 Resp 25 H 02/23/20 16:46 BP 97/61 02/23/20 16:46 Pulse Ox 93 L 02/23/20 16:46 - RESPIRATORY Respiratory Status: Respiratory Rate WNL, Airway Patent, O2 Saturation Stable, Supplemental Oxygen - CARDIOVASCULAR CV Status: Pulse Rate WNL, Blood Pressure Stable - GASTROINTESTINAL GI Status: No Symptoms - PAIN Pain Score: 4 (epidural rate adjusted) - POST OP HYDRATION Hydration Status: Adequate & Stable
[2020-02-23] MEDS: Ondansetron 4 MG/2 ML SDV IVPUSH PRN (20:04)
[2020-02-23] MEDS: metroNIDAZOLE/Normal Saline 500 MG in Premix Bag 1 BAG IV SCH (20:38)
[2020-02-24] MEDS ORDERED: Sodium Chloride 0.9% 1,000 ML IV ONE (00:24)
[2020-02-24] MEDS ORDERED: Sodium Chloride 0.9% 1,000 ML IV SCH (00:30)
[2020-02-24] MEDS: Heparin Sodium 5,000 Units/ML Vial SUBCUT SCH ×3 (00:46→15:44)
[2020-02-24] MEDS: Levofloxacin/Dextrose 5%-Water 750 MG in Premix Bag 1 BAG IV SCH (07:23)
[2020-02-24] MEDS: metroNIDAZOLE/Normal Saline 500 MG in Premix Bag 1 BAG IV SCH ×3 (07:23→20:15)
[2020-02-24] MEDS: Levothyroxine 25 MCG Tab PO SCH (07:23)
[2020-02-24] MEDS: Levothyroxine 112 MCG Tab PO SCH (07:24)
[2020-02-24] MEDS ORDERED: Lactated Ringers 1,000 ML IV ONE ×5 (08:33→22:37)
[2020-02-24] MEDS ORDERED: Magnesium Sulfate/Water 2 GM in Premix Bag 1 BAG IV ONE (08:39)
[2020-02-24] MEDS: Potassium Chloride 10 MEQ in Premix Bag 1 BAG IV SCH ×4 (08:50→12:13)
[2020-02-24] MEDS: Bupivacaine/fentaNYL/NS 100 ML Bag EPIDUR PRN (11:32)
--- NOTE | 2020-02-24 11:43 | PCM48HPAN ---
Post Anesthesia Note - EVALUATION WITHIN 48HRS OF ANESTHETIC Vital Signs in Normal Range: Yes Patient Participated in Evaluation: Yes Respiratory Function Stable: Yes Airway Patent: Yes Cardiovascular Function Stable: Yes Hydration Status Stable: Yes Pain Control Satisfactory: Yes Nausea and Vomiting Control Satisfactory: Yes Mental Status Recovered: Yes Vital Signs: Last Vital Signs Temp 98.2 F 02/24/20 08:00 Pulse 81 02/23/20 16:46 Resp 16 02/24/20 10:00 BP 105/63 02/24/20 10:00 Pulse Ox 95 02/24/20 10:00 - COMMENTS/OBSERVATIONS Free Text/Narrative:: Daily evaluation of indwelling thoracic epidural catheter of the patient recei gilbert Patient Controlled Epidural Analgesia Patient is on her postoperative day 1. Vitas signs stable. Thoracic epidural site intact. Current rate of Bupivacaine 0.125% with Fentanyl 2mcg/ml has been unchanged 4 mls/hr (PCEA bolus of 2mls q 15 min). Patient is stable hemodynamically at this rate and tolerating well. No lower extremities weakness or numbness noted. Patient may be up to the chair and ambulate with assistance as tolerated. Plan is not to remove epidural catheter at this time. We will reevaluate the patient within the next 24 hours. Seymour Mccracken CRNA.
--- NOTE | 2020-02-24 11:58 | PCM.SN.2 ---
- Free Text/Narrative Note: POD 1 s/p right colectomy for obstructing malignant lesion. S: states she feels like a new person. No appetite. Pain is manageable. 1 L bolus overnight for marginal urine output. O: AF-VSS epidural catheter in place Ng output minimal; FMS output minimal urine output between 20-30 cc/hr currently Abdominal dressing clean and dry, abdomen less distended, appropriately tender shaffer in place with alberta urine FMS in place A: Obstructing colon cancer, now POD 1 from resection and ileocolic anastomosis. Overall doing well but with decreased urine output. Lab work is significant for K+ 2.9, Mg++ 1.4. P: -epidural, pain management per anesthesia team -OOB, IS, PT, OT, supplemental oxygen as needed -at this point has now had 3 L crystalloid boluses since midnight. increase infusion rate of LR to 200 cc/hr. Monitor urine output -NG clamp trial. NPO, sips and meds okay -Maintain shaffer catheter for post op patient with marginal output -stop antibiotics within 24 hours post op -heparin for dvt ppx -repeat am labs -replenish potassium, magnesium IV
[2020-02-24] MEDS: Lactated Ringers 1,000 ML IV SCH ×2 (12:13→19:23)
[2020-02-25] MEDS ORDERED: Lactated Ringers 1,000 ML IV ONE (00:25)
[2020-02-25] MEDS: Heparin Sodium 5,000 Units/ML Vial SUBCUT SCH ×3 (00:30→16:50)
[2020-02-25] MEDS ORDERED: Lactated Ringers 500 ML IV ONE (00:45)
[2020-02-25] MEDS: Lactated Ringers 1,000 ML IV SCH ×3 (02:12→20:10)
[2020-02-25] MEDS: metroNIDAZOLE/Normal Saline 500 MG in Premix Bag 1 BAG IV SCH ×3 (05:03→20:05)
[2020-02-25] MEDS: Levofloxacin/Dextrose 5%-Water 750 MG in Premix Bag 1 BAG IV SCH (05:03)
[2020-02-25] MEDS: Levothyroxine 25 MCG Tab PO SCH (05:04)
[2020-02-25] MEDS: Levothyroxine 112 MCG Tab PO SCH (05:04)
[2020-02-25] MEDS ORDERED: Potassium Phosphates 30 MMOLE in Sodium Chloride 0.9% 500 ML IV ONE (09:00)
--- NOTE | 2020-02-25 09:27 | CR ---
Chest: Frontal view of the chest was obtained in AP projection. Comparison: Previous chest x-ray of 02/23/20. Increased density is noted within both medial lung bases, worse on the left side. Left side appears fairly stable from prior exam. Right side appears more prominent than seen on previous study. Upper lungs are clear. Heart size is normal. Tortuous thoracic aorta is seen. Bony structures are grossly intact. Overlying monitor leads are present. Impression: 1. Increased density within both lung bases. Findings on the left side are stable with findings on the right side having increased from previous study. Differential includes aspiration as well as pneumonia. Diagnostic code #3 This report was dictated in MDT
[2020-02-25] MEDS: Bupivacaine/fentaNYL/NS 100 ML Bag EPIDUR PRN (12:08)
--- NOTE | 2020-02-25 12:36 | PCM.SN.2 ---
- Free Text/Narrative Note: POD 2 s/p laparotomy and right hemicolectomy with ileocolic anastomosis for obstructing colon cancer. S: no complaints overnight. Tolerating clear liquids after NG removal. No flatus. pain controlled. O: AF- Vitals stable with MAPs in the 60s/70s, HR 80-100, SPO2 >95% on 2L O2, RR ~20 Intake: nearly 9L; output 571 cc urine Labs this morning are significant for WBC up to 13,000 from 7,000, Creatinine at baseline of 0.7, phosphorus low. Awake and alert, no distress Abdomen slightly distended, not tender. Epidural catheter in place. Incision site looks good after dressing removal. Shaffer in place with emergency room specialist colored urine output, picking up in hourly volume since midnight last night More notable pretibial edema A: Overall doing well after her operation. Urine output was marginal throughout the day yesterday, likely due to SIRS response following surgery. She has had nearly 9 L in in the past 24 hours, and urine output is now starting to chart picker. Her WBC is elevated, which may be due SIRS, to intraoperative contamination or to potential aspiration pneumonia noted on chest x-ray the morning after admission to the hospital, though this appears stable in subsequent imaging. Minimal gastric residual after clamping NG for hours yesterday, and now tolerating clear liquids. P: epidural for analgesia, managed by anesthesia team. Continue for now, plan for removal Saturday. IS, OOB, pulmonary toilet. Continue work with PT/OT, ambulating. LR @ 100 cc/hr. Monitor urine output Clear liquid diet, await return of bowel function Maintain shaffer catheter given post-operative acuity and oliguria Continue IV levofloxacin and metronidazole for now given concern for risk of postoperative intra-abdominal infection heparin 5000 u sc for dvt ppx * This patient will require prolonged hospitalization, > 96 hours, due to need for post-operative pain management, debility, waiting for return of bowel function, continued IV antibiotic therapy.
--- NOTE | 2020-02-25 12:47 | PCM48HPAN ---
Post Anesthesia Note - EVALUATION WITHIN 48HRS OF ANESTHETIC Vital Signs in Normal Range: Yes Patient Participated in Evaluation: Yes Respiratory Function Stable: Yes Airway Patent: Yes Cardiovascular Function Stable: Yes Hydration Status Stable: Yes Pain Control Satisfactory: Yes Nausea and Vomiting Control Satisfactory: Yes Mental Status Recovered: Yes Vital Signs: Last Vital Signs Temp 98.0 F 02/25/20 12:00 Pulse 81 02/23/20 16:46 Resp 20 02/25/20 12:00 BP 126/84 02/25/20 12:00 Pulse Ox 96 02/25/20 12:00 - COMMENTS/OBSERVATIONS Free Text/Narrative:: Daily evaluation of indwelling thoracic epidural catheter of the patient recei gilbert Patient Controlled Epidural Analgesia Patient is on her postoperative day 2. Vitas signs stable. Thoracic epidural site intact. Current rate of Bupivacaine 0.125% with Fentanyl 2mcg/ml has been unchanged 4 mls/hr (PCEA bolus of 2mls q 15 min). Patient is stable hemodynamically at this rate and tolerating well. No lower extremities weakness or numbness noted. Patient may be up to the chair and ambulate with assistance as tolerated. Plan is not to remove epidural catheter at this time. We will reevaluate the patient within the next 24 hours. Seymour Mccracken CRNA.
[2020-02-26] MEDS: Heparin Sodium 5,000 Units/ML Vial SUBCUT SCH ×3 (00:29→16:37)
[2020-02-26] MEDS: Lactated Ringers 1,000 ML IV SCH (04:05)
[2020-02-26] MEDS: metroNIDAZOLE/Normal Saline 500 MG in Premix Bag 1 BAG IV SCH (04:05)
[2020-02-26] MEDS: Levothyroxine 25 MCG Tab PO SCH (05:21)
[2020-02-26] MEDS: Levothyroxine 112 MCG Tab PO SCH (05:21)
[2020-02-26] MEDS: Levofloxacin/Dextrose 5%-Water 750 MG in Premix Bag 1 BAG IV SCH ×2 (05:22→06:05)
[2020-02-26] MEDS ORDERED: Potassium Phosphates 30 MMOLE in Sodium Chloride 0.9% 500 ML IV SCH (10:00)
--- NOTE | 2020-02-26 10:01 | PCM.SN.2 ---
- Free Text/Narrative Note: POD 3 s/p right colectomy and ileocolic anastomosis for obstruction colon lesion. S: feeling good, no complaints. Ambulating, tolerating clears. No flatus. O: AF-HR ~100, SBP up to 130-140 mm Hg, SpO2 97% on room air, RR 16, +3 L on fluid balance yesterday Awake and alert, no distress comfortable on room air sinus rhythm Abd incision clean and dry, no sign of infection epidural catheter in place shaffer catheter with clear yellow urine output LE edema, about the same as yesterday A: Recovering well, urine output improved to about 100 cc/hr for past few hours. WBC down from 13 to 12. Awaiting return of bowel function. P: -hold heparin tomorrow AM in preparation for epidural removal -IS, OOB< continue work with PT/OT. CXR for past few days has shown stable LLL fluid raising concern for possible aspiration, stable on latest CXR, seems asymptomatic -Clear for now, await return of bowel function -switch IV fluid to D5 1/2 NS w KCl @ 75 cc/hr -discontinue antibiotics -remove shaffer catheter, f/u trial of void. Bladder scan within 6 hours of removal if unable to void -anticipate discharge Saturday, disposition pending final PT/OT recommendations * This patient requires hospitalization for > 96 hrs following laparotomy and bowel resection for pain control, monitoring, waiting for return of bowel function, ongoing physical therapy needs.
[2020-02-26] MEDS: D5 1/2 NS w/ 20 mEq/L KCl 1,000 ML IV SCH ×2 (10:21→22:42)
--- NOTE | 2020-02-26 12:30 | PCM48HPAN ---
Post Anesthesia Note - EVALUATION WITHIN 48HRS OF ANESTHETIC Vital Signs in Normal Range: Yes Patient Participated in Evaluation: Yes Respiratory Function Stable: Yes Airway Patent: Yes Cardiovascular Function Stable: Yes Hydration Status Stable: Yes Pain Control Satisfactory: Yes Nausea and Vomiting Control Satisfactory: Yes Mental Status Recovered: Yes Vital Signs: Last Vital Signs Temp 97.8 F 02/26/20 12:00 Pulse 102 H 02/26/20 09:00 Resp 18 02/26/20 12:00 BP 143/91 H 02/26/20 12:00 Pulse Ox 96 02/26/20 12:00 Daily evaluation of indwelling thoracic epidural catheter of the patient receiving Patient Controlled Epidural Analgesia Patient is on her postoperative day 3. Vitas signs stable. Thoracic epidural site intact. Current rate of Bupivacaine 0.125% with Fentanyl 2mcg/ml has been unchanged 4 mls/hr (PCEA bolus of 2mls q 15 min). Patient is stable hemodynamically at this rate and tolerating well. No lower extremities weakness or numbness noted. Patient may be up to the chair and ambulate with assistance as tolerated. Plan is to remove epidural catheter tomorrow, per Dr Crews request. Tomorrow AM dose of Heparin SQ to be held and to be resumed 4 hours after the removal of epidural catheter. Seymour Mccracken CRNA. - COMMENTS/OBSERVATIONS Free Text/Narrative:: Daily evaluation of indwelling thoracic epidural catheter of the patient receiving Patient Controlled Epidural Analgesia Patient is on her postoperative day 3. Vitas signs stable. Thoracic epidural site intact. Current rate of Bupivacaine 0.125% with Fentanyl 2mcg/ml has been unchanged 4 mls/hr (PCEA bolus of 2mls q 15 min). Patient is stable hemodynamically at this rate and tolerating well. No lower extremities weakness or numbness noted. Patient may be up to the chair and ambulate with assistance as tolerated. Plan is to remove epidural catheter tomorrow with AM dose of Heparin to be held. We will reevaluate the patient within the next 24 hours. Seymour Mccracken CRNA.
[2020-02-26] MEDS: Bupivacaine/fentaNYL/NS 100 ML Bag EPIDUR PRN (13:00)
[2020-02-27] MEDS: Levothyroxine 112 MCG Tab PO SCH (06:13)
[2020-02-27] MEDS: Levothyroxine 25 MCG Tab PO SCH (06:14)
--- NOTE | 2020-02-27 10:07 | PCM48HPAN ---
Post Anesthesia Note - EVALUATION WITHIN 48HRS OF ANESTHETIC Vital Signs in Normal Range: Yes Patient Participated in Evaluation: Yes Respiratory Function Stable: Yes Airway Patent: Yes Cardiovascular Function Stable: Yes Hydration Status Stable: Yes Pain Control Satisfactory: Yes Nausea and Vomiting Control Satisfactory: Yes Mental Status Recovered: Yes Vital Signs: Last Vital Signs Temp 97.6 F 02/27/20 08:00 Pulse 93 02/27/20 09:00 Resp 16 02/27/20 08:00 BP 121/90 02/27/20 08:00 Pulse Ox 92 L 02/27/20 09:00 - COMMENTS/OBSERVATIONS Free Text/Narrative:: Daily evaluation of indwelling thoracic epidural catheter of the patient rece iving Patient Controlled Epidural Analgesia Patient is on her postoperative day 3. Vitas signs stable. Thoracic epidural site intact. Current rate of Bupivacaine 0.125% with Fentanyl 2mcg/ml has been unchanged 4 mls/hr (PCEA bolus of 2mls q 15 min). Patient is stable hemodynamically at this rate and tolerating well. No lower extremities weakness or numbness noted. Patient may be up to the chair and ambulate with assistance as tolerated. Epidural catheter removed at 10:00 am., the tip found intact and bandaid has been applied on the site. Heparin SQ to be resumed 4 hours after the removal of epidural catheter. This concludes anesthesia management of patient's postoperative pain. Thank you for the opportunity to take care of Mrs. Hernandez. Seymour Mccracken CRNA.
--- NOTE | 2020-02-27 10:13 | PCM.SN.2 ---
- Free Text/Narrative Note: POD 4 s/p right colectomy with ileocolic anastomosis for obstructing malignancy of the proximal transverse colon. S: reports some left sided chest pain with cough, no events overnight. ambulating with assistance, tolerating clear liquids, passed one small, loose BM. O: AF-VSS, SpO2 96% on room air, making over 30 cc/hr urine after shaffer catheter removal. No distress, awake and alert Normal respiratory effort RRR, palpable distal pulses LE edema slowly resolving Abd somewhat distended, not tender, tympanic, staple line appears intact with no drainage or erythema A: Overall looking good. Awaiting flatus. Left sided chest pain may correspond to radiographic finding of LLL infiltrate. P: -epidural removed this morning, plan for scheduled tylenol with morphine prn -continue pulmonary toilet, ambulation. Repeat CXR this morning to assess LLL -mIVF @ 75 cc/hr. Monitor urine output -clear liquid diet, await good evidence of bowel function prior to diet advancement -resume heparin SC 5000 u q8h for dvt ppx -antibiotics were stopped yesterday; monitor for signs of pneumonia, intra- abdominal infection. Repeat labs ordered for tomorrow morning. -change from ICU status to floor -continue PT/OT; anticipate earliest discharge this Saturday if all looks good. Face to face meeting with patient, with the following diagnosis: large bowel obstruction s/p right colectomy and ileocolic anastomosis for obstructing colon cancer. See discharge summary also for diagnosis. Pt needs home health care nursing services for: post op care, skilled assessment, vital signs, disease education/management, and medical education. Physical therapy for endurance, tolerance, gait training, and neuromuscular re-education. Occupational therapy for ADL training, transfer training, activity tolerance, therapeutic exercises and activities. Pt is currently homebound related decreased level of endurance, taxing effort to leave home related to 3rd floor apt 3 flights of stairs with no elevator in place. Pt will be followed by her primary provider Dr. Molsey.
[2020-02-27] MEDS: D5 1/2 NS w/ 20 mEq/L KCl 1,000 ML IV SCH (12:20)
--- NOTE | 2020-02-27 12:50 | CR ---
Chest: PA view of the chest was obtained which includes the abdomen. Comparison: Previous chest x-ray of 02/25/20. Dilated loops of small bowel are seen with left abdomen with differential air-fluid levels have the appearance of small bowel obstruction. Left-sided pleural effusion is seen. Parenchymal density within the left base either due to atelectasis or pneumonia. Small right sided pleural effusion is seen. Heart is silhouetted from the pleural effusions. Tortuous thoracic aorta is seen. Upper lungs are clear. Bony structures are grossly intact. Impression: 1. Findings having the appearance of small bowel obstruction. 2. Small right sided pleural effusion and slightly larger left-sided pleural effusion. 3. Increased density within the left base either due to atelectasis or pneumonia. Left base findings are fairly stable from prior chest x-ray. Diagnostic code #3 Study was dictated in MDT
[2020-02-27] MEDS: Heparin Sodium 5,000 Units/ML Vial SUBCUT SCH ×2 (16:40)
[2020-02-28] MEDS: Heparin Sodium 5,000 Units/ML Vial SUBCUT SCH ×3 (00:21→15:48)
[2020-02-28] MEDS: D5 1/2 NS w/ 20 mEq/L KCl 1,000 ML IV SCH ×2 (02:20→20:27)
[2020-02-28] MEDS: Levothyroxine 112 MCG Tab PO SCH (06:28)
[2020-02-28] MEDS: Levothyroxine 25 MCG Tab PO SCH (06:28)
[2020-02-28] MEDS ORDERED: Ketorolac 15 MG/ML SDV IVPUSH PRN (08:37)
--- NOTE | 2020-02-28 08:42 | PCM.SN.2 ---
- Free Text/Narrative Note: POD 5 s/p right colectomy with ileocolic anastomosis for obstructing colon cancer S: no acute events. Transferred to floor. Pain controlled. No nausea. Tolerating clears. No flatus. O: AF-VSS WBC wnl Potassium, phosphorus, magnesium levels low Awake and alert, no distress breathing comfortably on room air abdomen somewhat distended, not tender, incision clean and dry without erythema LE edema improving A: Overall doing well. WBC is now normal, CXR stable. Awaiting return of bowel function P: scheduled tylenol with prn toradol for pain clear liquid diet IS, OOB< continue pulmonary toilet mIVF @ 75 cc/hr. Replenish electrolytes heparin SC for dvt ppx No further labs or imaging for now Await return of bowel function prior to diet advancement. *This patient requires > 96 hr hospitalization due to debility after major surgery. Awaiting proper bowel function and diet advancement prior to safe discharge.
[2020-02-28] MEDS ORDERED: Potassium Phosphates 30 MMOLE in Sodium Chloride 0.9% 500 ML IV SCH (09:00)
[2020-02-28] MEDS: Acetaminophen 325 MG Tab PO SCH ×2 (09:12→15:47)
[2020-02-28] MEDS: Magnesium Sulfate/Water 2 GM in Premix Bag 1 BAG IV SCH ×2 (09:13→10:31)
[2020-02-28] MEDS ORDERED: Magnesium Sulfate/Water 2 GM in Premix Bag 1 BAG IV SCH (10:30)
--- NOTE | 2020-02-28 10:39 | CR ---
Chest: PA view of the chest was obtained. Comparison: Prior chest x-ray of 02/27/20. Continuing dilated small bowel loops seen within the abdomen. Small bilateral pleural effusions slightly larger on the left side remains stable. Continuing parenchymal density is noted within the left base is stable. Upper lungs are clear. Heart size and mediastinum are unchanged. Impression: 1. Multiple findings as described above. 2. No change from previous chest x-ray of 02/27/20. Diagnostic code #3 Study was dictated in MDT
[2020-02-29] MEDS: Acetaminophen 325 MG Tab PO SCH ×3 (00:16→16:57)
[2020-02-29] MEDS: Heparin Sodium 5,000 Units/ML Vial SUBCUT SCH ×3 (00:17→16:57)
[2020-02-29] MEDS: Levothyroxine 112 MCG Tab PO SCH (05:53)
[2020-02-29] MEDS: Levothyroxine 25 MCG Tab PO SCH (05:54)
--- NOTE | 2020-02-29 07:58 | PCM.SN.2 ---
- Free Text/Narrative Note: POD 6 S: no complaints, did well overnight. No nausea or bloating. Reports two bowel movements yesterday. O: AF-VSS awake and alert, no distress comfortable on room air abdomen soft, some distention, tympanic to percussion. Incision without sign of infection resolving LE edema A: Overall doing well. Path pending. Still with some distention, reports no flatus. P: wolfgang, regular diet anticipate discharge as early as tomorrow if necessary resources are in place in accordance with recommendations of PT/OT and CM patient requires greater than 96 hour hospitalization after laparotomy and bowel resection due to waiting for regular bowel function to return and establishing support after discharge given her frailty/chronic debility and the fact that she lives alone.
[2020-02-29] MEDS: Potassium Chloride 20 MEQ Tab.ER PO SCH ×2 (08:07→20:18)
[2020-02-29] MEDS: Ondansetron 4 MG/2 ML SDV IVPUSH PRN (14:22)
[2020-03-01] MEDS: Acetaminophen 325 MG Tab PO SCH ×2 (00:29→08:23)
[2020-03-01] MEDS: Heparin Sodium 5,000 Units/ML Vial SUBCUT SCH ×2 (00:30→08:24)
[2020-03-01] MEDS: Levothyroxine 112 MCG Tab PO SCH (05:38)
[2020-03-01] MEDS: Levothyroxine 25 MCG Tab PO SCH (05:38)
[2020-03-01] MEDS: Potassium Chloride 20 MEQ Tab.ER PO SCH (08:24)
--- NOTE | 2020-03-01 12:08 | PCM.DCSUM1 ---
Discharge Summary - Hospital Course HPI Initial Comments: Ms. Hernandez is a 74 yo woman who presented to the ER with abdominal pain and vomiting, with findings suggestive of a large bowel obstruction. The patient was admitted and placed on IV fluids and NG decompression was initiated. Prior to NG placement, the patient had a large volume emesis, and subsequent x-rays showed a stable LLL infiltrate suggestive of aspiration vs pneumonia. The patient was asymptomatic from a pulmonary standpoint. A contrast enema was obtained which did not show passage of contrast proximal to the hepatic flexure. The patient was then taken to the operating room for laparotomy. She was found to have a hard, obstructing mass within the lumen of the proximal transverse colon. Right colectomy was performed, with stapled side to side ileocolic anastomosis. Post- operatively, she was kept in the ICU, mainly for management of an epidural catheter that had been placed pre-operatively. For the first 48 hours in the ICU, her blood pressure was marginal as was urine output, and she received several liters of crystalloid. She was kept on levofloxacin and metronidazole post-operatively for 48 hours as there was intraoperative contamination from opening the small bowel. She eventually settled out and began to make plenty of urine. Her blood pressure improved to baseline. She was hospitalized until post- op day 7, at which point she had good pain control following epidural removal. She was tolerating a regular diet and passing flatus and stool. Her incision looked good. She was ambulatory and worked with physical and occupational therapy. She was deemed fit for discharge to home with home health services. Diagnosis: Stroke: No - Discharge Data Discharge Date: 03/01/20 Discharge Disposition: Home, W Home Health Agency Condition: Fair - Referral to Home Health Date of Face to Face Encounter: 03/01/20 Reason for Homebound Status: Face to Face meeting with pt and or family. 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 Pt is in need Home Health Care services for; low activity tolerance, functional mobility, standing balance, strength, transfers. Nursing for pain management, vitals, skilled assessment, disease management and disease education. CAN services for bathing and assistance with self-cares. Physical therapy for pt for balance training, gait training, bed mobility, neuromuscular reduction, therapeutic exercises, pain management and transfer training. Occupational therapy for activity tolerance, ADLs and t/f training, caregiver training, balance training, functional mobility training, therapeutic exercises and therapeutic activities. Pt is currently homebound related to decreased activity tolerance, and a decreased level of endurance. Pt will be followed by her primary provider and surgeon. Primary Care Physician: Lennie Leigh MD Skilled Need: Face to Face meeting with pt and or family. 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 Pt is in need Home Health Care services for; low activity tolerance, functional mobility, standing balance, strength, transfers. Nursing for pain management, vitals, skilled assessment, disease management and disease education. CAN services for bathing and assistance with self-cares. Physical therapy for pt for balance training, gait training, bed mobility, neuromuscular reduction, therapeutic exercises, pain management and transfer training. Occupational therapy for activity tolerance, ADLs and t/f training, caregiver training, balance training, functional mobility training, therapeutic exercises and therapeutic activities. Pt is currently homebound related to decreased activity tolerance, and a decreased level of endurance. Pt will be followed by her primary provider and surgeon. - Patient Summary/Data Consults: Consultations 02/24/20 08:37 Consult to Occupational Therapy [OT Evaluation and Treatment] [CONS] Routine Consult to Physical Therapy [PT Evaluation and Treatment] [CONS] Routine - Patient Instructions Diet: Usual Diet as Tolerated Activity: No Lifting Over 10 Pounds Showering/Bathing: May Shower Wound/Incision Care: Keep Operative Site/Wound Site Clean and Dry Notify Provider of: Fever, Increased Pain, Swelling and Redness, Drainage, Nausea and/or Vomiting - Discharge Plan *PRESCRIPTION DRUG MONITORING PROGRAM REVIEWED*: Not Applicable *COPY OF PRESCRIPTION DRUG MONITORING REPORT IN PATIENT LIZBETH: Not Applicable Home Medications: Home Meds Levothyroxine Sodium [Synthroid] 137 mcg PO DAILY 06/09/18 [History] Oxygen Therapy Mode: Room Air Patient Handouts: Bowel Obstruction, [id number] Referrals: Lennie Leigh MD [Primary Care Provider] - 03/07/20 3:30 pm (Please follow up with Dr. Mosley on March 07 at 3:30.) Cory Crews MD [Physician] - 03/07/20 1:15 pm (Please follow up with Dr. Crews on March 07 at 1:15.) - Discharge Summary/Plan Comment DC Time >30 min.: Yes - Patient Data Vitals - Most Recent: Last Vital Signs Temp 36.3 C 03/01/20 07:36 Pulse 78 03/01/20 07:36 Resp 20 03/01/20 07:36 BP 143/81 H 03/01/20 07:36 Pulse Ox 97 03/01/20 07:36 Weight - Most Recent: 71.758 kg I&O - Last 24 hours: Intake & Output 02/29/20 03/01/20 03/01/20 22:59 06:59 14:59 Intake Total 620 1000 100 Output Total 1300 2650 Balance -680 -1650 100 Lab Results - Last 24 hrs: Laboratory Results - last 24 hr 03/01/20 03/01/20 Range/Units 06:07 06:07 Sodium 136 (136-145) mEq/L Potassium 3.6 (3.5-5.1) mEq/L Chloride 103 (98-107) mEq/L Carbon Dioxide 25 (21-32) mEq/L Anion Gap 11.6 (5-15) BUN 3 L (7-18) mg/dL Creatinine 0.5 L (0.55-1.02) mg/dL Est Cr Clr Drug Dosing 98.90 mL/min Estimated GFR (MDRD) > 60 (>60) mL/min BUN/Creatinine Ratio 6.0 L (14-18) Glucose 91 (83-115) mg/dL Calcium 7.9 L (8.5-10.1) mg/dL Phosphorus 2.7 (2.6-4.7) mg/dL Magnesium 2.2 (1.8-2.4) mg/dl Med Orders - Current: Current Medications Acetaminophen (Tylenol) 650 mg PO Q8H [facility] Last Admin: 03/01/20 08:23 Dose: 650 mg Documented by: Benzocaine (Hurricaine 20% [place]) 0 ml MUCMEM Q4HR PRN PRN Reason: Sore Throat Diphenhydramine HCl (Benadryl) 25 mg IVPUSH Q6H PRN PRN Reason: pruritis Heparin Sodium (Porcine) (Heparin Sodium) 5,000 units SUBCUT Q8H [facility] Last Admin: 03/01/20 08:24 Dose: 5,000 units Documented by: Ketorolac Tromethamine (Toradol) 15 mg IVPUSH Q8H PRN PRN Reason: Pain Levothyroxine Sodium (Levothyroxine) 25 mcg PO ACBREAKFAST [facility] Last Admin: 03/01/20 05:38 Dose: 25 mcg Documented by: Levothyroxine Sodium (Levothyroxine) 112 mcg PO ACBREAKFAST [facility] Last Admin: 03/01/20 05:38 Dose: 112 mcg Documented by: Ondansetron HCl (Zofran) 4 mg IVPUSH Q6H PRN PRN Reason: Nausea/Vomiting Last Admin: 02/29/20 14:22 Dose: 4 mg Documented by: Potassium Chloride (Klor-Con M20) 20 meq PO BID [facility] Last Admin: 03/01/20 08:24 Dose: 20 meq Documented by: Discontinued Medications Acetaminophen (Tylenol) 975 mg PO Q8H [facility] Last Admin: 02/22/20 20:07 Dose: Not Given Documented by: Acetaminophen (Tylenol) 975 mg PO Q8H PRN PRN Reason: Pain Last Admin: 02/23/20 05:27 Dose: 975 mg Documented by: Acetaminophen (Tylenol) 975 mg PO Q8H PRN PRN Reason: Pain Bupivacaine HCl (Sensorcaine-Mpf 0.25%) Confirm Administered Dose 10 ml .ROUTE .STK-MED ONE Stop: 02/23/20 13:23 Bupivacaine HCl (Sensorcaine-Mpf 0.25%) Confirm Administered Dose 10 ml .ROUTE .STK-MED ONE Stop: 02/23/20 14:50 Bupivacaine HCl/Epinephrine Bitart (Marcaine 0.5%/Epinephrine 1:200,000) Confirm Administered Dose 50 ml .ROUTE .STK-MED ONE Stop: 02/23/20 10:17 Last Admin: 02/23/20 13:02 Dose: 10 ml Documented by: Diatrizoate Meglum/Diatrizoate Sod (Gastrografin 37%) 90 ml PO ONETIME ONE Stop: 02/21/20 10:21 Last Admin: 02/21/20 10:36 Dose: 90 ml Documented by: Diatrizoate Meglum/Diatrizoate Sod (Gastrografin 37%) 360 ml .XX ONETIME ONE Stop: 02/23/20 08:14 Last Admin: 02/23/20 09:26 Dose: 1,000 ml Documented by: Diatrizoate Meglumine (Cystografin) 300 ml .XX ONETIME ONE Stop: 02/23/20 09:01 Last Admin: 02/23/20 09:29 Dose: 300 ml Documented by: Docusate Sodium (Colace) 100 mg PO BID [facility] Last Admin: 02/22/20 08:00 Dose: 100 mg Documented by: Ephedrine Sulfate (Ephedrine Sulfate) 5 mg IVPUSH ASDIRECTED PRN PRN Reason: Hypotension Epinephrine HCl (Adrenalin) Confirm Administered Dose 1 mg .ROUTE .STK-MED ONE Stop: 02/23/20 14:15 Fentanyl (Sublimaze) Confirm Administered Dose 100 mcg .ROUTE .STK-MED ONE Stop: 02/23/20 10:44 Fentanyl (Sublimaze) Confirm Administered Dose 100 mcg .ROUTE .STK-MED ONE Stop: 02/23/20 13:30 Fentanyl (Sublimaze) 100 mcg EPIDUR Q3H PRN PRN Reason: Pain Fentanyl/Bupivacaine HCl (Fentanyl/Bupivacaine/Ns 2 Mcg-0.125% 100 Ml) 100 ml EPIDUR ASDIRECTED PRN PRN Reason: Pain Last Admin: 02/26/20 13:00 Dose: 100 ml Documented by: Heparin Sodium (Porcine) (Heparin Sodium) 5,000 units SUBCUT Q8H [facility] Stop: 02/27/20 01:00 Last Admin: 02/27/20 00:00 Dose: 5,000 units Documented by: Hydromorphone HCl (Dilaudid) 0.5 mg IVPUSH ONETIME ONE Stop: 02/21/20 07:56 Last Admin: 02/21/20 08:08 Dose: 0.5 mg Documented by: Dextrose/Sodium Chloride (Dextrose 5%-Normal Saline) 1,000 mls @ 500 mls/hr IV ASDIRECTED [facility] Last Admin: 02/21/20 08:12 Dose: 500 mls/hr Documented by: Dextrose/Lactated Ringer's (Dextrose 5%-Lactated Ringers) 1,000 mls @ 150 mls/hr IV ASDIRECTED [facility] Lactated Ringer's (Ringers, Lactated) 1,000 mls @ 100 mls/hr IV ASDIRECTED [facility] Last Admin: 02/23/20 18:21 Dose: 100 mls/hr Documented by: Lactated Ringer's (Ringers, Lactated) Confirm Administered Dose 1,000 mls @ as directed .ROUTE .[facility] ONE Stop: 02/23/20 12:51 Lactated Ringer's (Ringers, Lactated) Confirm Administered Dose 1,000 mls @ as directed .ROUTE .[facility] ONE Stop: 02/23/20 12:51 Cefoxitin Sodium (Mefoxin In Dextrose,Iso-Osm 2 Gm/50 Ml) Confirm Administered Dose 50 mls @ as directed .ROUTE .[facility] ONE Stop: 02/23/20 12:53 Metronidazole (Flagyl 500 Mg In Ns 100 Ml) Confirm Administered Dose 100 mls @ as directed .ROUTE .[facility] ONE Stop: 02/23/20 13:28 Levofloxacin/Dextrose 750 mg/ (Premix) 150 mls @ 100 mls/hr IV Q24H [facility] Last Admin: 02/25/20 05:03 Dose: 100 mls/hr Documented by: Metronidazole 500 mg/ Premix 100 mls @ 100 mls/hr IV Q8H [facility] Last Admin: 02/26/20 04:05 Dose: 100 mls/hr Documented by: Sodium Chloride (Normal Saline) 1,000 mls @ 999 mls/hr IV ONETIME ONE Stop: 02/24/20 01:24 Last Admin: 02/24/20 00:47 Dose: 999 mls/hr Documented by: Sodium Chloride (Normal Saline) 1,000 mls @ 125 mls/hr IV ASDIRECTED [facility] Lactated Ringer's (Ringers, Lactated) 1,000 mls @ 200 mls/hr IV ASDIRECTED [facility] Last Admin: 02/24/20 19:23 Dose: 200 mls/hr Documented by: Lactated Ringer's (Ringers, Lactated) 1,000 mls @ 1,000 mls/hr IV .[facility]OLUS ONE Stop: 02/24/20 09:32 Last Admin: 02/24/20 08:49 Dose: 1,000 mls/hr Documented by: Potassium Chloride 10 meq/ (Premix) 100 mls @ 100 mls/hr IV Q1H [facility] Stop: 02/24/20 12:44 Last Admin: 02/24/20 12:13 Dose: 100 mls/hr Documented by: Magnesium Sulfate 2 gm/ Premix 50 mls @ 25 mls/hr IV ONETIME ONE Stop: 02/24/20 10:38 Last Admin: 02/24/20 08:49 Dose: 25 mls/hr Documented by: Lactated Ringer's (Ringers, Lactated) 1,000 mls @ 999 mls/hr IV .BOLUS ONE Stop: 02/24/20 12:04 Last Admin: 02/24/20 11:04 Dose: 999 mls/hr Documented by: Lactated Ringer's (Ringers, Lactated) 1,000 mls @ 999 mls/hr IV .BOLUS ONE Stop: 02/24/20 16:12 Last Admin: 02/24/20 15:40 Dose: 999 mls/hr Documented by: Lactated Ringer's (Ringers, Lactated) 1,000 mls @ 999 mls/hr IV BOLUS ONE Stop: 02/24/20 19:17 Last Admin: 02/24/20 18:18 Dose: 999 mls/hr Documented by: Lactated Ringer's (Ringers, Lactated) 1,000 mls @ 999 mls/hr IV .BOLUS ONE Stop: 02/24/20 23:37 Last Admin: 02/24/20 23:00 Dose: 999 mls/hr Documented by: Lactated Ringer's (Ringers, Lactated) 1,000 mls @ 100 mls/hr IV ASDIRECTED ONE Stop: 02/25/20 10:24 Last Admin: 02/25/20 00:50 Dose: Not Given Documented by: Lactated Ringer's (Ringers, Lactated) 500 mls @ 50 mls/hr IV ONETIME ONE Stop: 02/25/20 10:44 Lactated Ringer's (Ringers, Lactated) 1,000 mls @ 100 mls/hr IV ASDIRECTED [facility] Last Admin: 02/26/20 04:05 Dose: 100 mls/hr Documented by: Potassium Phosphate 30 mmole/ (Sodium Chloride) 510 mls @ 102 mls/hr IV ONETIME ONE Stop: 02/25/20 13:59 Last Admin: 02/25/20 10:24 Dose: 102 mls/hr Documented by: Levofloxacin/Dextrose 750 mg/ (Premix) 150 mls @ 100 mls/hr IV Q24H [facility] Last Admin: 02/26/20 06:05 Dose: Not Given Documented by: Potassium Chloride/Dextrose/Sod Cl (D5 1/2 Ns W/ 20 Meq/L Kcl) 1,000 mls @ 75 mls/hr IV ASDIRECTED [facility] Last Admin: 02/28/20 20:27 Dose: 75 mls/hr Documented by: Potassium Phosphate 30 mmole/ (Sodium Chloride) 510 mls @ 102 mls/hr IV ASDIRECTED [facility] Stop: 02/26/20 14:59 Last Admin: 02/26/20 10:23 Dose: 102 mls/hr Documented by: Magnesium Sulfate 2 gm/ Premix 50 mls @ 25 mls/hr IV Q1H [facility] Stop: 02/28/20 10:44 Last Admin: 02/28/20 10:31 Dose: Not Given Documented by: Potassium Phosphate 30 mmole/ (Sodium Chloride) 510 mls @ 102 mls/hr IV ASDIRECTED [facility] Stop: 02/28/20 13:59 Last Admin: 02/28/20 09:14 Dose: 102 mls/hr Documented by: Magnesium Sulfate 2 gm/ Premix 50 mls @ 25 mls/hr IV ASDIRECTED [facility] Stop: 02/28/20 12:29 Last Admin: 02/28/20 11:28 Dose: 25 mls/hr Documented by: Iopamidol (Isovue-300 (61%)) 100 ml IVPUSH ONETIME ONE Stop: 02/21/20 10:21 Last Admin: 02/21/20 10:36 Dose: 100 ml Documented by: Ketorolac Tromethamine (Toradol) 15 mg IVPUSH Q6H PRN PRN Reason: Pain Last Admin: 02/23/20 00:17 Dose: 15 mg Documented by: Lactulose (Cephulac) 20 gm PO ONETIME ONE Stop: 02/21/20 08:47 Last Admin: 02/21/20 09:05 Dose: 20 gm Documented by: Levothyroxine Sodium (Levothyroxine) 25 mcg PO ACBREAKFAST [facility] Last Admin: 02/22/20 05:06 Dose: Not Given Documented by: Levothyroxine Sodium (Levothyroxine) 112 mcg PO DAILY@0700 [facility] Last Admin: 02/22/20 11:02 Dose: Not Given Documented by: Levothyroxine Sodium (Levothyroxine) 112 mcg PO ACBREAKFAST [facility] Last Admin: 02/22/20 11:01 Dose: Not Given Documented by: Lidocaine/Epinephrine (Xylocaine-Mpf 2%-Epi 1:200,000) Confirm Administered Dose 20 ml .ROUTE .STK-MED ONE Stop: 02/23/20 10:45 Midazolam HCl (Versed 1 Mg/Ml) Confirm Administered Dose 2 mg .ROUTE .STK-MED ONE Stop: 02/23/20 10:44 Miscellaneous Medication (Phenylephrine 1 Mg/10 Ml-Ns) Confirm Administered Dose 1 mg IV .STK-MED ONE Stop: 02/23/20 12:39 Ondansetron HCl (Zofran) 4 mg IVPUSH ONETIME ONE Stop: 02/21/20 07:55 Last Admin: 02/21/20 08:06 Dose: 4 mg Documented by: Polyethylene Glycol (Miralax) 17 gm PO BID [facility] Last Admin: 02/22/20 08:00 Dose: 17 gm Documented by: Propofol (Diprivan 20 Ml) Confirm Administered Dose 200 mg .ROUTE .STK-MED ONE Stop: 02/23/20 10:44 Propofol (Diprivan 20 Ml) Confirm Administered Dose 200 mg .ROUTE .STK-MED ONE Stop: 02/23/20 13:18 Propofol (Diprivan 20 Ml) Confirm Administered Dose 200 mg .ROUTE .STK-MED ONE Stop: 02/23/20 14:10 Sodium Chloride (Saline Flush) 10 ml FLUSH ONETIME ONE Stop: 02/21/20 10:21 Last Admin: 02/21/20 10:36 Dose: 10 ml Documented by:
== END 2020-03-01 15:16 | disposition home health service (06) | DRG 231 ==
LOC: JD.ED 07:32 → JD.MS 11:57 → JD.ICU 02-23 12:52 → OBSVTOIN 02-23 15:04 → JD.MS 02-28 04:45
PROVIDERS: ADMIT Surgery; ATTEND Surgery
PROC: 0DTF0ZZ Resection of Right Large Intestine, Open Approach (ICD-10-PCS; principal; 2020-02-23)
PROC: 0D9670Z Drainage of Stomach with Drainage Device, Via Natural or Artificial Opening (ICD-10-PCS; 2020-02-23)
DX: C18.4 Malignant neoplasm of transverse colon (principal); R65.10 Systemic inflammatory response syndrome (SIRS) of non-infectious origin without acute organ dysfunction; E46 Unspecified protein-calorie malnutrition; E03.9 Hypothyroidism, unspecified; Z79.890 Hormone replacement therapy; Z80.0 Family history of malignant neoplasm of digestive organs; Z11.59 Encounter for screening for other viral diseases; Z68.24 Body mass index [BMI] 24.0-24.9, adult
CPT/HCPCS: 00840; 01996; 36415; 62320; 71045; 71045-26; 74018; 74018-26; 74177; 74177-26; 74270; 74270-26; 80048; 80053; 81001; 82009; 82040; 83605; 83690; 83735; 84100; 84443; 85025; 85027; 86140; 96361; 96374; 96375; 96376; 97110-GO; 97110-GP; 97116-GP; 97163-GP; 97165-GO; 97530-GO; 97530-GP; 97535-GO; 99285-25; A9270-GY; G0378; J0171; J0694; J1170; J1644; J1885; J1956; J2250; J2370; J2405; J2704; J3010; J3475; J3480; J3490; J7030; J7040; J7042; J7120; Q9958; Q9963; Q9967; U0002

== ENCOUNTER 2022-01-08 13:19 | Emergency (ER) | payer BC, MEDICARE ==
[2022-01-08] MEDS ORDERED: Sodium Chloride 0.9% 10 ML Syringe FLUSH PRN (13:48)
[2022-01-08] MEDS ORDERED: Ondansetron 4 MG/2 ML SDV IVPUSH ONE (13:48)
[2022-01-08] MEDS ORDERED: Sodium Chloride 0.9% 1,000 ML IV STA (13:48)
[2022-01-08] MEDS ORDERED: HYDROmorphone 0.5 MG/0.5 ML Syringe IVPUSH ONE (13:50)
[2022-01-08] MEDS ORDERED: Diatrizoate Meglumine/Diatrizoate Sodium 37% 120 ML Bottle PO ONE (14:09)
[2022-01-08] MEDS ORDERED: Iopamidol 612 MG/ML 100 ML Bottle IVPUSH ONE (14:09)
== END 2022-01-08 17:10 | disposition home or self-care (01) ==
LOC: JD.ED 13:19
DX: K56.609 Unspecified intestinal obstruction, unspecified as to partial versus complete obstruction (principal); E03.9 Hypothyroidism, unspecified; Z79.899 Other long term (current) drug therapy
CPT/HCPCS: 36415; 74177; 80053; 81001; 83690; 85025; 96374; 96375; 99284; J1170; J2405; J3490; J7030; Q9963; Q9967

== ENCOUNTER 2022-01-08 18:47 | Inpatient (IN) | payer BC, MEDICARE ==
[2022-01-08] MEDS ORDERED: Sodium Chloride 0.9% 10 ML Syringe FLUSH PRN (18:54)
[2022-01-08] MEDS ORDERED: Sodium Chloride 0.9% 1,000 ML IV SCH (19:00)
[2022-01-08] MEDS: Pantoprazole 40 MG Vial IV SCH (21:33)
[2022-01-08] MEDS: Lactated Ringers 1,000 ML IV SCH (21:36)
[2022-01-09] MEDS: Ketorolac 15 MG/ML SDV IVPUSH PRN ×3 (01:08→20:50)
[2022-01-09] MEDS: Lactated Ringers 1,000 ML IV SCH ×3 (06:33→23:23)
[2022-01-09] MEDS: Pantoprazole 40 MG Vial IV SCH ×2 (09:01→20:45)
[2022-01-09] MEDS: Enoxaparin 40 MG/0.4 ML Syringe SUBCUT SCH (09:04)
[2022-01-09] MEDS ORDERED: Diatrizoate Meglumine/Diatrizoate Sodium 37% 120 ML Bottle PO ONE (10:27)
[2022-01-09] MEDS: Ondansetron 4 MG/2 ML SDV IV PRN (19:09)
[2022-01-10] MEDS: Ketorolac 15 MG/ML SDV IVPUSH PRN ×3 (04:41→21:25)
[2022-01-10] MEDS: Enoxaparin 40 MG/0.4 ML Syringe SUBCUT SCH (08:30)
[2022-01-10] MEDS: Pantoprazole 40 MG Vial IV SCH ×2 (08:30→21:25)
[2022-01-10] MEDS: Potassium Chloride 10 MEQ in Premix Bag 1 BAG IV SCH ×4 (08:31→12:20)
[2022-01-10] MEDS: Lactated Ringers 1,000 ML IV SCH ×2 (08:32→16:40)
[2022-01-10] MEDS: Ondansetron 4 MG/2 ML SDV IV PRN ×2 (12:09→16:16)
[2022-01-11] MEDS: Lactated Ringers 1,000 ML IV SCH (00:57)
[2022-01-11] MEDS: Ketorolac 15 MG/ML SDV IVPUSH PRN ×2 (08:12→23:57)
[2022-01-11] MEDS: Ondansetron 4 MG/2 ML SDV IV PRN ×2 (08:17→15:59)
[2022-01-11] MEDS: Pantoprazole 40 MG Vial IV SCH ×2 (08:18→20:40)
[2022-01-11] MEDS: Enoxaparin 40 MG/0.4 ML Syringe SUBCUT SCH (08:34)
[2022-01-11] MEDS: Potassium Chloride 10 MEQ in Premix Bag 1 BAG IV SCH ×4 (08:40→12:55)
[2022-01-11] MEDS: Dextrose 5%-Lact Ringers w/KCl 1,000 ML IV SCH ×2 (08:41→19:31)
[2022-01-12] MEDS ORDERED: Sodium Chloride 0.9% 10 ML Syringe FLUSH PRN (00:01)
[2022-01-12] MEDS ORDERED: Lidocaine 1%/Sod Bicarbonate in NS 8.4% 1 ML Syringe IDERM PRN (00:01)
[2022-01-12] MEDS ORDERED: Lactated Ringers 1,000 ML IV SCH (00:01)
[2022-01-12] MEDS ORDERED: Sodium Chloride 0.9% 10 ML Syringe FLUSH SCH (00:01)
[2022-01-12] MEDS: Dextrose 5%-Lact Ringers w/KCl 1,000 ML IV SCH ×2 (04:33→18:45)
[2022-01-12] MEDS: Enoxaparin 40 MG/0.4 ML Syringe SUBCUT SCH (08:05)
[2022-01-12] MEDS: Pantoprazole 40 MG Vial IV SCH ×3 (08:07→21:55)
[2022-01-12] MEDS ORDERED: Potassium Phosphates 15 MMOLE in Sodium Chloride 0.9% 250 ML IV SCH (08:30)
[2022-01-12] MEDS: Ondansetron 4 MG/2 ML SDV IV PRN (09:30)
[2022-01-12] MEDS ORDERED: Lidocaine 1% 50 ML MDV ONE (10:47)
[2022-01-12] MEDS ORDERED: fentaNYL 250 MCG/5 ML SDV ONE (13:22)
[2022-01-12] MEDS ORDERED: Propofol 200 MG/20 ML SDV ONE (13:22)
[2022-01-12] MEDS ORDERED: Lidocaine 1% 5 ML VIAL ONE (13:23)
[2022-01-12] MEDS ORDERED: Dexamethasone 4 MG/ML 5 ML MDV ONE (13:23)
[2022-01-12] MEDS ORDERED: Ondansetron 4 MG/2 ML SDV ONE (13:23)
[2022-01-12] MEDS ORDERED: Rocuronium 50 MG/5 ML Vial ONE ×2 (13:26→15:49)
[2022-01-12] MEDS ORDERED: Sodium Chloride 0.9% 100 ML ONE (13:36)
[2022-01-12] MEDS ORDERED: Piperacillin/Tazobactam 4.5 GM in Sodium Chloride 0.9% 100 ML IV ONE (14:00)
[2022-01-12] MEDS ORDERED: fentaNYL 100 MCG/2 ML SDV IVPUSH PRN (15:24)
[2022-01-12] MEDS ORDERED: Ondansetron 4 MG/2 ML SDV IVPUSH PRN (15:24)
[2022-01-12] MEDS ORDERED: HYDROmorphone 0.5 MG/0.5 ML Syringe IVPUSH PRN (15:24)
[2022-01-12] MEDS ORDERED: Sodium Chloride 0.9% 1,000 ML ONE (15:33)
[2022-01-12] MEDS ORDERED: HYDROmorphone 0.5 MG/0.5 ML Syringe ONE (16:02)
[2022-01-12] MEDS ORDERED: Lactated Ringers 1,000 ML ONE ×2 (16:05→17:03)
[2022-01-12] MEDS ORDERED: Furosemide 20 MG/2 ML VIAL ONE (16:36)
[2022-01-12] MEDS: Ketorolac 15 MG/ML SDV IVPUSH PRN (22:51)
[2022-01-13] MEDS: Dextrose 5%-Lact Ringers w/KCl 1,000 ML IV SCH ×2 (04:56→15:51)
[2022-01-13] MEDS: Pantoprazole 40 MG Vial IV SCH ×2 (08:54→20:55)
[2022-01-13] MEDS: Enoxaparin 40 MG/0.4 ML Syringe SUBCUT SCH (08:54)
[2022-01-13] MEDS: Ondansetron 4 MG/2 ML SDV IV PRN (11:13)
[2022-01-14] MEDS: Dextrose 5%-Lact Ringers w/KCl 1,000 ML IV SCH ×2 (01:54→20:36)
[2022-01-14] MEDS: Enoxaparin 40 MG/0.4 ML Syringe SUBCUT SCH (08:50)
[2022-01-14] MEDS: Pantoprazole 40 MG Vial IV SCH (08:50)
[2022-01-14] MEDS ORDERED: Magnesium Sulfate (4.06 MEQ/ML) 5 GM/10 ML SDV IV SCH (10:45)
[2022-01-14] MEDS ORDERED: Magnesium Sulfate/Water 2 GM in Premix Bag 1 BAG IV ONE (11:00)
[2022-01-14] MEDS ORDERED: Ketorolac 15 MG/ML SDV IVPUSH PRN (11:51)
[2022-01-14] MEDS ORDERED: Potassium Phosphates 30 MMOLE in Sodium Chloride 0.9% 500 ML IV ONE (13:00)
[2022-01-15] MEDS: Dextrose 5%-Lact Ringers w/KCl 1,000 ML IV SCH (08:20)
[2022-01-15] MEDS ORDERED: Ketorolac 15 MG/ML SDV IVPUSH PRN (10:20)
[2022-01-15] MEDS ORDERED: Potassium Bicarbonate/Cit Ac 20 MEQ Effervescent Tab PO ONE (10:43)
[2022-01-16] MEDS ORDERED: Docusate Sodium 100 MG Cap PO PRN (07:31)
[2022-01-16] MEDS: Levothyroxine 112 MCG Tab PO SCH (07:59)
[2022-01-16] MEDS: Levothyroxine 25 MCG Tab PO SCH (08:00)
[2022-01-17] MEDS: Levothyroxine 112 MCG Tab PO SCH (08:54)
[2022-01-17] MEDS: Levothyroxine 25 MCG Tab PO SCH (08:54)
== END 2022-01-17 17:00 | disposition home or self-care (01) | DRG 224 ==
LOC: JD.ED 18:47 → JD.MS 19:40
PROVIDERS: ADMIT Surgery; ATTEND Surgery
PROC: 0DNU4ZZ Release Omentum, Percutaneous Endoscopic Approach (ICD-10-PCS; principal; 2022-01-12)
DX: K56.50 Intestinal adhesions [bands], unspecified as to partial versus complete obstruction (principal); E03.9 Hypothyroidism, unspecified; Z87.440 Personal history of urinary (tract) infections
CPT/HCPCS: 00840; 36415; 71045; 71045-26; 74018; 74018-26; 80048; 83735; 84100; 85025; 86850; 86900; 86901; 99100; 99285-25; A9270-GY; C9113; J1100; J1170; J1650; J1885; J1940; J2001; J2370; J2405; J2543; J2704; J2710; J3010; J3475; J3480; J3490; J7030; J7040; J7050; J7120

== ENCOUNTER → 2022-04-10 | Day surgery (SDC) | payer BC, MEDICARE ==
[~2022-04-10] MED LIST: Lactated Ringers 1,000 ML IV SCH; Lidocaine 1% 2 ML ONE; Lidocaine 1%/Sod Bicarbonate in NS 8.4% 1 ML Syringe IDERM PRN; Midazolam 1 MG/ML 2 ML SDV ONE; Propofol 200 MG/20 ML SDV ONE; Sodium Chloride 0.9% 10 ML Syringe FLUSH PRN; Sodium Chloride 0.9% 10 ML Syringe FLUSH SCH; fentaNYL 100 MCG/2 ML SDV ONE
== END | disposition home or self-care (01) ==
LOC: JD.SDS 08:19
PROVIDERS: ATTEND Surgery
DX: Z12.11 Encounter for screening for malignant neoplasm of colon (principal); Z85.038 Personal history of other malignant neoplasm of large intestine; Z90.49 Acquired absence of other specified parts of digestive tract; E03.9 Hypothyroidism, unspecified; Z79.890 Hormone replacement therapy
CPT/HCPCS: 45378; J2250; J2704; J3010; J7120; 00812

== ENCOUNTER 2024-02-16 09:06 | Emergency (ER) | payer MEDICARE, OTHER ==
[2024-02-16] MEDS: Sodium Chloride 0.9% 10 ML Syringe FLUSH PRN (09:32)
[2024-02-16 09:35] LABS: BASOPHILS PERCENT AUTO 0.4 % (0.0-1.0); EOSINOPHILS PERCENT AUTO 0.4 % (0.0-6.0); HEMATOCRIT 41.7 % (37.0-47.0); HEMOGLOBIN 13.6 gm/dl (12.0-16.0); IMMATURE GRAN ABSOLUTE AUTO 0.01 K/mm3 (0.00-0.05); IMMATURE GRAN PERCENT AUTO 0.2 % (0.0-0.4); LYMPHOCYTES PERCENT AUTO 21.3 % (24.0-44.0); MEAN CORPUSCULAR HEMOGLOBIN 28.3 pg (28.0-32.0); MEAN CORPUSCULAR HGB CONC 32.6 g/dl (32.0-36.0); MEAN CORPUSCULAR VOLUME 86.7 fl (83.0-99.0); MEAN PLATELET VOLUME 9.6 fl (9.4-12.3); MONOCYTES ABSOLUTE AUTO 0.4 K/mm3 (0.0-0.8); MONOCYTES PERCENT AUTO 8.4 % (0.0-8.0); NEUTROPHILS ABSOLUTE AUTO 3.1 K/mm3 (1.8-7.7); NEUTROPHILS PERCENT AUTO 69.3 % (41.0-71.0); PLATELET COUNT,PLT 267 K/mm3 (150-400); RED BLOOD CELL COUNT 4.81 M/mm3 (4.10-5.30)
[2024-02-16] MEDS ORDERED: Iopamidol 612 MG/ML 100 ML Bottle IVPUSH ONE (09:54)
[2024-02-16 09:57] LABS: A/G RATIO 1.1 (1-2); ALBUMIN 3.9 g/dl (3.4-5.0); ANION GAP 11.7 (5-15); BILIRUBIN TOTAL 0.3 mg/dL (0.2-1.0); CALCIUM 9.3 mg/dL (8.5-10.1); CREATININE 0.7 mg/dL (0.55-1.02); EST CRCL DRUG DOSING (CG) 59.73 mL/min; POTASSIUM,K 3.7 mEq/L (3.5-5.1); PROTEIN TOTAL,TP 7.6 g/dl (6.4-8.2)
[2024-02-16 10:39] LABS: APPEARANCE,URINE CLEAR (Clear); BILIRUBIN,URINE NEGATIVE (Negative); COLOR,URINE YELLOW (Yellow); GLUCOSE,URINE NEGATIVE (Negative); KETONES,URINE NEGATIVE (Negative); LEUKOCYTE ESTERASE,URINE NEGATIVE (Negative); NITRITE,URINE NEGATIVE (Negative); OCCULT BLOOD,URINE TRACE-INTACT (Negative); PROTEIN,URINE NEGATIVE (Negative); UROBILINOGEN,URINE 0.2 (0.2-1.0)
[2024-02-16 10:52] LABS: BACTERIA,URINE FEW /hpf (FEW); MUCUS,URINE FEW /hpf (FEW); RBC,URINE 0-5 /hpf (0-5); SQUAMOUS EPITHELIAL CELLS,UR 0-5 /hpf (0-5); WBC,URINE 0-5 /hpf (0-5)
== END 2024-02-16 11:45 | disposition home or self-care (01) ==
LOC: JD.ED 09:06
DX: K59.09 Other constipation (principal); E03.9 Hypothyroidism, unspecified; Z79.890 Hormone replacement therapy
CPT/HCPCS: 36415; 74177; 80053; 81001; 83690; 85025; 99284; J3490

== ENCOUNTER 2024-03-03 08:14 | Day surgery (SDC) | payer MEDICARE, OTHER ==
[~2024-03-03 08:14] MED LIST changes: -Lactated Ringers 1,000 ML IV SCH; -Lidocaine 1% 2 ML ONE; -Lidocaine 1%/Sod Bicarbonate in NS 8.4% 1 ML Syringe IDERM PRN; -Midazolam 1 MG/ML 2 ML SDV ONE; -Propofol 200 MG/20 ML SDV ONE; -fentaNYL 100 MCG/2 ML SDV ONE
[2024-03-03] MEDS: Lactated Ringers 1,000 ML IV SCH (08:35)
[2024-03-03] MEDS ORDERED: Propofol 200 MG/20 ML SDV ONE (09:07)
== END 2024-03-03 10:35 | disposition home or self-care (01) ==
LOC: JD.SDS 08:14
PROVIDERS: ATTEND Surgery
DX: Z12.11 Encounter for screening for malignant neoplasm of colon (principal); E03.9 Hypothyroidism, unspecified; K59.00 Constipation, unspecified; Z85.038 Personal history of other malignant neoplasm of large intestine; Z79.890 Hormone replacement therapy; Z90.49 Acquired absence of other specified parts of digestive tract
CPT/HCPCS: G0105; J2704; J7120